=== PATIENT | female | born 1965 | race American Indian/Alaskan Native ===

== ENCOUNTER 2020-05-01 22:02 | Inpatient (IN) | payer OTHER ==
[2020-05-01] MEDS ORDERED: SODIUM CHLORIDE 0.9% 1000 ML 1,000 ML IV ONE (22:07)
[2020-05-01] MEDS ORDERED: methylPREDNISolone Sod Succinate 125 MG/2 ML INJ IV ONE (22:07)
[2020-05-01] MEDS ORDERED: cefTRIAXone/NS 2 GM/100 ML 2 GM/100 ML BAG IV ONE (22:09)
[2020-05-01] MEDS ORDERED: AZITHROMYCIN 500 MG in SODIUM CHLORIDE 0.9% 250ML 250 ML IV ONE (22:09)
--- NOTE | 2020-05-01 22:10 | Emergency Department Report ---
ED Shortness of Breath HPI - General Chief Complaint: Dyspnea/Respdistress Stated Complaint: SOB Time Seen by Provider: 05/01/20 22:05 Source: patient Mode of arrival: Stretcher Limitations: No Limitations - History of Present Illness Initial Comments: Patient is a 54-year-old female that presents emergency room with complaints of chest pain and shortness of breath. Patient shortness of breath and chest pain started this morning. Patient states her symptoms are worsening. Patient states having difficulties breathing and cough and fever. Patient states she was diagnosed with COVID 7 days ago. Patient states that she was given antibiotics by her primary care. Patient was brought in by EMS. EMS states they found the patient to be 76% on room air. Patient was placed on nonrebreather and her oxygen saturation improved. Patient has been self quarantining since her diagnosis. Patient denies dizziness. Patient denies nausea and vomiting. Patient denies diarrhea. MD Complaint: shortness of breath, cough, chest pain -: Sudden Severity: severe Pain Scale: 10 Quality: throbbing Consistency: constant Improves With: rest Worsens With: exertion, movement Context: recent URI Associated Symptoms: chest pain, pain with inspiration, fever, cough Treatments Prior to Arrival: oxygen - Related Data Home Oxygen Therapy: No Home Medications Medication Instructions Recorded Confirmed Last Taken Levothyroxine 25 mg PO QDAY 05/01/20 05/01/20 Unknown Allergies Allergy/AdvReac Type Severity Reaction Status Date / Time No Known Allergies Allergy Unverified 05/01/20 22:11 ED Review of Systems ROS: Stated complaint: SOB Other details as noted in HPI Constitutional: chills, fever Eyes: denies: eye pain, eye discharge, vision change ENT: denies: ear pain, throat pain Respiratory: cough, shortness of breath. denies: wheezing Cardiovascular: denies: chest pain, palpitations Endocrine: no symptoms reported Gastrointestinal: denies: abdominal pain, nausea, diarrhea Genitourinary: denies: urgency, dysuria, discharge Musculoskeletal: denies: back pain, joint swelling, arthralgia Skin: denies: rash, lesions Neurological: denies: headache, weakness, paresthesias Psychiatric: denies: anxiety, depression Hematological/Lymphatic: denies: easy bleeding, easy bruising ED Past Medical Hx - Past Medical History Previous Medical History?: No Hx Hypertension: No Hx Diabetes: No - Surgical History Past Surgical History?: No - Family History Family history: no significant - Social History Smoking Status: Never Smoker Substance Use Type: None - Medications Home Medications: Home Medications Medication Instructions Recorded Confirmed Last Taken Type Levothyroxine 25 mg PO QDAY 05/01/20 05/01/20 Unknown History ED Physical Exam - General Limitations: No Limitations General appearance: alert, in no apparent distress - Head Head exam: Present: atraumatic, normocephalic - Eye Eye exam: Present: normal appearance - ENT ENT exam: Present: mucous membranes moist - Neck Neck exam: Present: normal inspection - Respiratory Respiratory exam: Present: decreased breath sounds. Absent: respiratory distress, wheezes, rales - Cardiovascular Cardiovascular Exam: Present: regular rate, normal rhythm. Absent: systolic murmur, diastolic murmur, rubs, gallop - GI/Abdominal GI/Abdominal exam: Present: soft, normal bowel sounds - Extremities Exam Extremities exam: Present: normal inspection - Back Exam Back exam: Present: normal inspection - Neurological Exam Neurological exam: Present: alert, oriented X3 - Psychiatric Psychiatric exam: Present: normal affect, normal mood - Skin Skin exam: Present: warm, dry, intact, normal color. Absent: rash ED Course Vital Signs 05/01/20 05/01/20 05/01/20 22:11 22:26 22:30 Temperature 101.1 F H Pulse Rate 107 H 110 H 104 H Respiratory 20 20 Rate Blood Pressure 141/81 Blood Pressure 141/81 [LEFT FOREARM] O2 Sat by Pulse 98 91 98 Oximetry 05/01/20 05/01/20 05/01/20 23:00 23:05 23:22 Temperature Pulse Rate 97 H 106 H Respiratory 29 H 23 Rate Blood Pressure 141/81 Blood Pressure [LEFT FOREARM] O2 Sat by Pulse 99 95 100 Oximetry 05/01/20 05/02/20 05/02/20 23:30 00:00 00:30 Temperature Pulse Rate 97 H 92 H 93 H Respiratory 24 23 21 Rate Blood Pressure 141/81 133/85 Blood Pressure [LEFT FOREARM] O2 Sat by Pulse 99 100 98 Oximetry - Reevaluation(s) Reevaluation #1: Initial evaluation done. Patient placed on nonrebreather. 05/01/20 22:05 Reevaluation #2: Patient continues to require O2. Patient patient was placed on high flow O2. 05/01/20 22:42 Reevaluation #3: I discussed all results with patient. I discussed plan of care with patient. Emma zhou agrees with plan of care and admission. Patient to be admitted to the hospitalist service. 05/01/20 23:59 - Consultations Consultation #1: Hospitalist consulted for admission. Hospitalist to admit patient. 05/01/20 23:59 Consultation #2: ID consult placed in system 05/01/20 23:52 Consultation #3: I discussed the patient's case with [place] physician, Dr. Salinas. Dr. Salinas agrees with admission here. 05/02/20 01:33 ED Medical Decision Making - Lab Data Result diagrams: 05/01/20 22:50 05/01/20 22:50 - Radiology Data Radiology results: report reviewed CHEST 1 VIEW 05/01/2020 10:36 PM INDICATION / CLINICAL INFORMATION: Dyspnea. Chest pain. COVID 19 positive. COMPARISON: None available. FINDINGS: SUPPORT DEVICES: None. HEART / MEDIASTINUM: No significant abnormality. LUNGS / PLEURA: There are generalized bilateral airspace opacities. No significant pleural effusion. No pneumothorax. ADDITIONAL FINDINGS: No significant additional findings. IMPRESSION: Bilateral pneumonia. Continued radiographic follow-up to resolution is recommended. - Medical Decision Making Patient is a 54-year-old female who presents emergency room with complaints of shortness of breath difficulties breathing and chest pain. Patient symptoms started today. Patient was diagnosed with COVID 7 days ago. Patient states her difficulties breathing and chest pain started this morning. Patient placed on antibiotics by her primary care for COVID. Patient brought in by EMS. Patient found to have a 76 oxygen saturation. Patient placed on oxygen. Patient was then converted from a nonrebreather to high flow O2 and her oxygen improved. Patient admitted into the ICU and to the hospitalist service. Patient is given fluids, Rocephin, azithromycin and Solu-Medrol. Patient's chest x-ray also shows bilateral pneumonia - Differential Diagnosis Fever, COVID, pneumonia, hypoxia, shortness of breath, Critical Care Time: Yes Critical care time in (mins) excluding proc time.: 35 Critical care attestation.: If time is entered above; I have spent that time in minutes in the direct care of this critically ill patient, excluding procedure time. Critical Care Time: 35 MINUTES ED Disposition Clinical Impression: Cough, SOB (shortness of breath), Suspected COVID-19 virus infection, COVID-19 Respiratory failure Qualifiers: Chronicity: acute Respiratory failure complication: hypoxia Qualified Code(s): J96.01 - Acute respiratory failure with hypoxia Pneumonia Qualifiers: Pneumonia type: due to unspecified organism Laterality: bilateral Lung location: unspecified part of lung Qualified Code(s): J18.9 - Pneumonia, unspecified organism Chest pain Qualifiers: Chest pain type: unspecified Qualified Code(s): R07.9 - Chest pain, unspecified Fever Qualifiers: Fever type: unspecified Qualified Code(s): R50.9 - Fever, unspecified Disposition: 09 OP ADMIT IP TO THIS HOSP Is pt being admited?: Yes Does the pt Need Aspirin: No Condition: Critical Time of Disposition: 23:54
--- NOTE | 2020-05-01 22:53 | XRay Report ---
CHEST 1 VIEW 05/01/2020 10:36 PM INDICATION / CLINICAL INFORMATION: Dyspnea. Chest pain. COVID 19 positive. COMPARISON: None available. FINDINGS: SUPPORT DEVICES: None. HEART / MEDIASTINUM: No significant abnormality. LUNGS / PLEURA: There are generalized bilateral airspace opacities. No significant pleural effusion. No pneumothorax. ADDITIONAL FINDINGS: No significant additional findings. IMPRESSION: Bilateral pneumonia. Continued radiographic follow-up to resolution is recommended. Signer Name: Anthony Barahona MD Signed: 05/01/2020 10:49 PM Workstation Name: [id number]
[2020-05-01 23:14] LABS: Basophils % (Auto) 0.3 % (0.0-1.8); Hematocrit 45.6 % (30.3-42.9); Hemoglobin 14.6 gm/dl (10.1-14.3); Lymphocytes # (Auto) 0.9 K/mm3 (1.2-5.4); Lymphocytes % (Auto) 10.6 % (13.4-35.0); Mean Corpuscular HGB Conc 32 % (30-34); Mean Corpuscular Volume 80 fl (79-97); Monocytes # (Auto) 0.8 K/mm3 (0.0-0.8); Platelet Count 222 K/mm3 (140-440); Red Blood Count 5.68 M/mm3 (3.65-5.03); Red Cell Distribution Width 14.9 % (13.2-15.2)
[2020-05-01 23:46] LABS: Alanine Aminotransferase 93 units/L (7-56); Albumin 3.4 g/dL (3.9-5); BUN/Creatinine Ratio 13; Blood Urea Nitrogen 10 mg/dL (7-17); Calcium 8.6 mg/dL (8.4-10.2); Creatine Kinase MB < 1.0 ng/mL (0.0-4.0); Hemolysis Index 1
[2020-05-02] MEDS ORDERED: ACETAMINOPHEN 325 MG TAB PO PRN (00:21)
[2020-05-02] MEDS ORDERED: MORPHINE 2 MG/1 ML INJ IV PRN (00:21)
[2020-05-02] MEDS ORDERED: MAGNESIUM HYDROXIDE (MOM) ORAL LIQD UDC PO PRN ×2 (00:21)
--- NOTE | 2020-05-02 00:31 | History and Physical Report ---
History of Present Illness Date of examination: 05/02/20 Date of admission: 05/02/20 00:02 Chief complaint: Shortness of breath History of present illness: 84-year-old female with no significant past medical history presenting to the emergency room today complaining of shortness of breath. She also had associated chest discomfort. She was diagnosed with COVID-19 about a week ago but she started having difficulty breathing, having cough and fever today. He had some antibiotics, primary care physician-name unknown. He denies any nausea vomiting, no diarrhea, no abdominal pain, no hematuria or dysuria, no headache or dizziness. Denies any generalized body aches and pain. Patient was brought in by EMS and was found to be about 76% saturation on room air was subsequently placed on high flow oxygen. Chest x-ray reveals bilateral pneumonia. He has been placed on empiric IV antibiotics and IV steroid patient placed on isolation precautions for COVID-19. Past History Past Medical History: hypothyroidism Past Surgical History: No surgical history Social history: no significant social history Family history: no significant family history Medications and Allergies Allergies Allergy/AdvReac Type Severity Reaction Status Date / Time No Known Allergies Allergy Unverified 05/01/20 22:11 Home Medications Medication Instructions Recorded Confirmed Last Taken Type Levothyroxine 25 mg PO QDAY 05/01/20 05/01/20 Unknown History Review of Systems Constitutional: fever, no chills Ears, nose, mouth and throat: no nasal congestion, no sore throat Cardiovascular: chest pain, no palpitations Respiratory: cough, shortness of breath Gastrointestinal: no abdominal pain, no nausea, no vomiting, no diarrhea Genitourinary Female: no flank pain, no dysuria, no hematuria Musculoskeletal: no neck pain, no low back pain Integumentary: no rash, no pruritis Neurological: no headaches, no confusion Psychiatric: no anxiety, no depression Exam - Constitutional Vitals: Temp Pulse Resp BP Pulse Ox 101.1 F H 106 H 23 141/81 100 05/01/20 22:11 05/01/20 23:22 05/01/20 23:22 05/01/20 22:11 05/01/20 23:22 General appearance: Present: no acute distress, well-nourished - EENT Eyes: Present: PERRL, EOM intact ENT: hearing intact, clear oral mucosa, dentition normal - Neck Neck: Present: supple, normal ROM - Respiratory Respiratory effort: normal Respiratory: bilateral: diminished - Cardiovascular Rhythm: regular Heart Sounds: Present: S1 & S2. Absent: gallop, systolic murmur, diastolic murmur, rub - Extremities Extremities: no ischemia, pulses intact, pulses symmetrical, No edema, Full ROM Peripheral Pulses: within normal limits - Abdominal General gastrointestinal: Present: soft, non-tender, non-distended, normal bowel sounds. Absent: mass - Integumentary Integumentary: Present: clear, warm, dry. Absent: rash - Musculoskeletal Musculoskeletal: strength equal bilaterally - Psychiatric Psychiatric: appropriate mood/affect, intact judgment & insight, memory intact, cooperative - Neurologic Neurologic: CNII-XII intact, no focal deficits, moves all extremities HEART Score - HEART Score Troponin: Troponin T < 0.010 ng/mL (0.00-0.029) 05/01/20 22:50 Results - Labs CBC & Chem 7: 05/01/20 22:50 05/01/20 22:50 Labs: Abnormal lab results 05/01/20 05/01/20 05/01/20 Range/Units 22:50 22:50 22:50 RBC 5.68 H (3.65-5.03) M/mm3 Hgb 14.6 H (10.1-14.3) gm/dl Hct 45.6 H (30.3-42.9) % MCH 26 L (28-32) pg Lymph % (Auto) 10.6 L (13.4-35.0) % [place] % (Auto) 10.0 H (0.0-7.3) % Lymph # 0.9 L (1.2-5.4) K/mm3 Seg Neutrophils % 79.1 H (40.0-70.0) % D-Dimer 835.72 H (0-234) ng/mlDDU Glucose 102 H (65-100) mg/dL AST 54 H (5-40) units/L ALT 93 H (7-56) units/L Total Protein 8.7 H (6.3-8.2) g/dL Albumin 3.4 L (3.9-5) g/dL Assessment and Plan - Patient Problems (1) Pneumonia Current Visit: Yes Status: Acute Qualifiers: Pneumonia type: due to unspecified organism Laterality: bilateral Lung location: unspecified part of lung Qualified Code(s): J18.9 - Pneumonia, unspecified organism Plan to address problem: Patient placed on IV antibiotics. We will await blood culture result. (2) Respiratory failure Current Visit: Yes Status: Acute Qualifiers: Chronicity: acute Respiratory failure complication: hypoxia Qualified Code(s): J96.01 - Acute respiratory failure with hypoxia Plan to address problem: Secondary to the underlying pneumonia. Patient currently on high flow oxygen. We will keep O2 saturation greater or equal to 94%. We will place consult to utility bill collection clerk for evaluation and recommendation. (3) Suspected COVID-19 virus infection Current Visit: Yes Status: Acute Plan to address problem: Patient placed on isolation precautions. Consult has been placed to infectious disease for evaluation and recommendation. Meanwhile patient placed on IV steroid. (4) DVT prophylaxis Current Visit: Yes Status: Acute Plan to address problem: Patient placed on subcutaneous Lovenox. (5) Full code status Current Visit: Yes Status: Acute
[2020-05-02] MEDS ORDERED: ONDANSETRON 4 MG/2 ML INJ ONE ×2 (00:46→14:31)
[2020-05-02] MEDS ORDERED: ACETAMINOPHEN 325 MG TAB ONE ×2 (00:46→14:30)
[2020-05-02] MEDS ORDERED: MORPHINE 2 MG/1 ML INJ ONE ×2 (00:47→14:31)
[2020-05-02] MEDS: MORPHINE 2 MG/1 ML INJ IV PRN ×2 (00:48→14:21)
[2020-05-02] MEDS: ACETAMINOPHEN 325 MG TAB PO PRN ×2 (00:48→14:22)
[2020-05-02] MEDS: ONDANSETRON 4 MG/2 ML INJ IV PRN ×2 (00:48→14:22)
[2020-05-02 01:11] LABS: ABG Base Excess -1.6 mmol/L (-2.0-3.0); ABG HCO3 22.5 mmol/L (20.0-26.0); ABG Methemoglobin 0.5 % (0.0-1.5); ABG Oxygen Saturation 98.1 % (95.0-99.0); ABG PCO2 36.3 mm Hg; ABG PH 7.411 pH Units (7.350-7.450); ABG PO2 117.3 mm Hg (80.0-90.0)
[2020-05-02 02:08] LABS: C-Reactive Protein 6.7 mg/dL (0.00-1.30)
[2020-05-02] MEDS ORDERED: cefTRIAXone/NS 2 GM/100 ML 2 GM/100 ML BAG IV SCH (10:00)
[2020-05-02] MEDS ORDERED: AZITHROMYCIN 500 MG in SODIUM CHLORIDE 0.9% 250ML 250 ML IV SCH (10:00)
[2020-05-02] MEDS: dexAMETHasone 4 MG/ML VIAL IV SCH (11:00)
[2020-05-02] MEDS ORDERED: cefTRIAXone/NS 2 GM/100 ML 2 GM/100 ML BAG IV ONE (11:31)
[2020-05-02] MEDS ORDERED: dexAMETHasone 20 MG/5 ML VIAL ONE (11:31)
--- NOTE | 2020-05-02 13:27 | Consultation ---
History of Present Illness Consult date: 05/02/20 Reason for consult: dyspnea, cough, other (Fever) History of present illness: 84-year-old female with no significant past medical history presenting to the emergency room today complaining of shortness of breath. She also had associated chest discomfort. She was diagnosed with COVID-19 about a week ago but she started having difficulty breathing, having cough and fever today. He had some antibiotics, primary care physician-name unknown. He denies any nausea vomiting, no diarrhea, no abdominal pain, no hematuria or dysuria, no headache or dizziness. Denies any generalized body aches and pain. Patient has no history of smoking, alcohol or drug abuse. Denies history of asthma. History of hypothyroidism No known de rug allergies. Patient was brought in by EMS and was found to be about 76% saturation on room air was subsequently placed on high flow oxygen. Patient presently on Vapotherm, FIO2 70% and O2 saturation running 94%. Patient febrile 101.1 No leukocytosis. Chest x-ray reveals bilateral pneumonia. He has been placed on empiric IV antibiotics and IV steroid patient placed on isolation precautions for COVID-19. Patient is on ceftrioxone, Zithromax and dexamethasone and S/C Lovenox. Past History Past Medical History: hypothyroidism Past Surgical History: No surgical history Social history: no significant social history. denies: smoking, alcohol abuse, prescription drug abuse Family history: no significant family history Medications and Allergies Allergies Allergy/AdvReac Type Severity Reaction Status Date / Time No Known Allergies Allergy Unverified 05/01/20 22:11 Home Medications Medication Instructions Recorded Confirmed Last Taken Type Levothyroxine 25 mg PO QDAY 05/01/20 05/01/20 Unknown History Active Meds: Active Medications Acetaminophen (Tylenol) 650 mg PO Q4H PRN PRN Reason: Pain MILD(1-3)/Fever >100.5/ROMERO Last Admin: 05/02/20 00:48 Dose: 650 mg Documented by: Dexamethasone (Decadron) 6 mg IV Q24HR SLAVA Enoxaparin Sodium (Enoxaparin) 40 mg SUB-Q QDAY@2200 SLAVA Ceftriaxone Sodium (Rocephin/Ns 2 Gm/100 Ml) 2 gm in 100 mls @ 200 mls/hr IV Q24HR SLAVA; Protocol Azithromycin 500 mg/ Sodium (Chloride) 250 mls @ 250 mls/hr IV Q24HR SLAVA; Protocol Magnesium Hydroxide (Milk Of Magnesia) 30 ml PO Q4H PRN PRN Reason: Constipation Morphine Sulfate (Morphine) 2 mg IV Q4H PRN PRN Reason: Pain, Moderate (4-6) Last Admin: 05/02/20 00:48 Dose: 2 mg Documented by: Ondansetron HCl (Zofran) 4 mg IV Q8H PRN PRN Reason: Nausea And Vomiting Last Admin: 05/02/20 00:48 Dose: 4 mg Documented by: Sodium Chloride (Sodium Chloride Flush Syringe 10 Ml) 10 ml IV BID SLAVA Sodium Chloride (Sodium Chloride Flush Syringe 10 Ml) 10 ml IV PRN PRN PRN Reason: LINE FLUSH Review of Systems All systems: negative Physical Examination Vital signs: Vital Signs Temp Pulse Resp BP Pulse Ox 101.1 F H 107 H 20 141/81 98 05/01/20 22:11 05/01/20 22:11 05/01/20 22:11 05/01/20 22:11 05/01/20 22:11 General appearance: no acute distress, alert, other ([place] Obese.) Eyes: non-icteric ENT: oropharynx moist Neck: supple, no JVD Effort: mildly labored Ascultation: Bilateral: diminished breath sounds, rhonchi Cardiovascular: regular rate and rhythm Gastrointestinal: normoactive bowel sounds, soft, non-tender Integumentary: normal Extremities: no cyanosis, no edema Musculoskeletal: no deformities Gait: other (Can not assess at this time.) normal mental status, non-focal exam, pupils equal and round, CN II-XII normal Results - Laboratory Findings CBC and BMP: 05/01/20 22:50 05/01/20 22:50 ABG ABG pH 7.411 pH Units (7.350-7.450) 05/02/20 00:54 ABG pCO2 36.3 mm Hg 05/02/20 00:54 ABG pO2 117.3 mm Hg (80.0-90.0) H 05/02/20 00:54 ABG O2 Saturation 98.1 % (95.0-99.0) 05/02/20 00:54 PT/INR, D-dimer D-Dimer 835.72 ng/mlDDU (0-234) H 05/01/20 22:50 Abnormal lab findings: Abnormal Labs 05/01/20 05/01/20 05/01/20 22:50 22:50 22:50 RBC 5.68 H Hgb 14.6 H Hct 45.6 H MCH 26 L Lymph % (Auto) 10.6 L [place] % (Auto) 10.0 H Lymph # 0.9 L Seg Neutrophils % 79.1 H D-Dimer 835.72 H ABG pO2 Glucose 102 H AST 54 H ALT 93 H Lactate Dehydrogenase C-Reactive Protein Total Protein 8.7 H Albumin 3.4 L 05/01/20 05/02/20 22:50 00:54 RBC Hgb Hct MCH Lymph % (Auto) [place] % (Auto) Lymph # Seg Neutrophils % D-Dimer ABG pO2 117.3 H Glucose 104 H AST ALT Lactate Dehydrogenase 398 H C-Reactive Protein 6.70 H Total Protein Albumin - Diagnostic Findings Chest x-ray: report reviewed, image reviewed Additional studies: CHEST 1 VIEW 05/01/2020 10:36 PM INDICATION / CLINICAL INFORMATION: Dyspnea. Chest pain. COVID 19 positive. COMPARISON: None available. FINDINGS: SUPPORT DEVICES: None. HEART / MEDIASTINUM: No significant abnormality. LUNGS / PLEURA: There are generalized bilateral airspace opacities. No significant pleural effusion. No pneumothorax. ADDITIONAL FINDINGS: No significant additional findings. IMPRESSION: Bilateral pneumonia. Continued radiographic follow-up to resolution is recommended. Assessment and Plan 4-year-old female with no significant past medical history presenting to the emergency room today complaining of shortness of breath. She also had associated chest discomfort. She was diagnosed with COVID-19 about a week ago but she started having difficulty breathing, having cough and fever today. He had some antibiotics, primary care physician-name unknown. He denies any nausea vomiting, no diarrhea, no abdominal pain, no hematuria or dysuria, no headache or dizziness. Denies any generalized body aches and pain. Patient has no history of smoking, alcohol or drug abuse. Denies history of asthma. No known de rug allergies. Patient was brought in by EMS and was found to be about 76% saturation on room air was subsequently placed on high flow oxygen. Patient presently on Vapotherm, FIO2 70% and O2 saturation running 94%. Patient febrile 101.1 No leukocytosis. Chest x-ray reveals bilateral pneumonia. He has been placed on empiric IV antibiotics and IV steroid patient placed on isolation precautions for COVID-19. Patient is on ceftrioxone, Zithromax and dexamethasone and S/C Lovenox. I spent direct critical care time of 45 minutes on this patient obtaining history, review the chart, Examining the patient, review chest xray and lab results, talking to respiratory therapy, nursing staff and work out plan of treatment in this critically ill COVID positive patient. - Patient Problems (1) COVID-19 Current Visit: Yes Status: Acute Plan to address problem: Patient is on ceftrioxone, Zithromax and dexamethasone and S/C Lovenox. Recommend to consult infectious diseases. (2) Pneumonia Current Visit: Yes Status: Acute Qualifiers: Pneumonia type: due to unspecified organism Laterality: bilateral Lung location: unspecified part of lung Qualified Code(s): J18.9 - Pneumonia, unspecified organism Plan to address problem: Patient is on ceftrioxone, Zithromax (3) Respiratory failure Current Visit: Yes Status: Acute Qualifiers: Chronicity: acute Respiratory failure complication: hypoxia Qualified Code(s): J96.01 - Acute respiratory failure with hypoxia Plan to address problem: Patient is on Vapotherm, FIO2 70%. (4) Chest pain Current Visit: Yes Status: Acute Qualifiers: Chest pain type: unspecified Qualified Code(s): R07.9 - Chest pain, unspecified Plan to address problem: Recommend to get Angio CT of chest. Also recommend to consult cardiology. (5) Fever Current Visit: Yes Status: Acute Qualifiers: Fever type: unspecified Plan to address problem: Patient is on ceftrioxone, Zithromax Recommend to consult infectious diseases also.
[2020-05-02 14:18] LABS: Bacteria,Urine 1+ /HPF (Negative); Bilirubin,Urine NEG (Negative); Blood,Urine MOD (Negative); Color,Urine Yellow (Yellow); Mucus,Urine 2+ /HPF
--- NOTE | 2020-05-02 17:48 | Consultation ---
History of Present Illness - Reason for Consult Consult date: 05/02/20 - History of Present Illness 54-year-old female no known past medical history admitted to the hospital complaining of shortness of breath. She also reports a chest discomfort at the same time she was initially diagnosed COVID-19 approximately a week prior to admission, but her symptoms only began the day of admission to hospital. She also reports associated fever and cough. Found to be hypoxic in the emergency room Febrile to 101.1 with a normal white count of 8. Currently seeing ceftriaxone and azithromycin. Blood cultures currently pending. Procalcitonin is normal. Currently receiving high flow nasal cannula 25 L/min. Imaging personally reviewed: Chest x-ray: Bilateral pneumonia Review of Systems: Bold if positive, otherwise negative General: fevers, chills, rigors HEENT: visual disturbance, diplopia, eye pain Respiratory: cough, sputum, hemoptysis, shortness of breath Cardiovascular: chest pain, syncope Gastrointestinal: nausea, vomiting, diarrhea, abdominal pain Genitourinary: dysuria, hematuria, flank pain Musculoskeletal: neck pain, back pain, joint pain, edema Neurologic: headaches, seizures Hematologic: easy bruising or bleeding Endocrine: night sweats, acute weight loss Skin: rash, jaundice, redness Psychiatric: suicidal, homicidal ideation Past History Past Medical History: hypothyroidism Past Surgical History: No surgical history Social history: no significant social history. denies: smoking, alcohol abuse, prescription drug abuse Family history: no significant family history Medications and Allergies Allergies Allergy/AdvReac Type Severity Reaction Status Date / Time No Known Allergies Allergy Unverified 05/01/20 22:11 Home Medications Medication Instructions Recorded Confirmed Last Taken Type Levothyroxine 25 mg PO QDAY 05/01/20 05/01/20 Unknown History Active Meds: Active Medications Acetaminophen (Tylenol) 650 mg PO Q4H PRN PRN Reason: Pain MILD(1-3)/Fever >100.5/ROMERO Last Admin: 05/02/20 14:22 Dose: 650 mg Documented by: Dexamethasone (Decadron) 6 mg IV Q24HR SLAVA Last Admin: 05/02/20 11:00 Dose: 6 mg Documented by: Enoxaparin Sodium (Enoxaparin) 40 mg SUB-Q QDAY@2200 SLAVA Ceftriaxone Sodium (Rocephin/Ns 2 Gm/100 Ml) 2 gm in 100 mls @ 200 mls/hr IV Q24HR SLAVA; Protocol Last Admin: 05/02/20 11:00 Dose: 200 mls/hr Documented by: Azithromycin 500 mg/ Sodium (Chloride) 250 mls @ 250 mls/hr IV Q24HR SLAVA; Protocol Last Admin: 05/02/20 11:00 Dose: 250 mls/hr Documented by: Magnesium Hydroxide (Milk Of Magnesia) 30 ml PO Q4H PRN PRN Reason: Constipation Morphine Sulfate (Morphine) 2 mg IV Q4H PRN PRN Reason: Pain, Moderate (4-6) Last Admin: 05/02/20 14:21 Dose: 2 mg Documented by: Ondansetron HCl (Zofran) 4 mg IV Q8H PRN PRN Reason: Nausea And Vomiting Last Admin: 05/02/20 14:22 Dose: 4 mg Documented by: Sodium Chloride (Sodium Chloride Flush Syringe 10 Ml) 10 ml IV BID SLAVA Last Admin: 05/02/20 10:00 Dose: 10 ml Documented by: Sodium Chloride (Sodium Chloride Flush Syringe 10 Ml) 10 ml IV PRN PRN PRN Reason: LINE FLUSH Physical Examination - Physical Exam Narrative exam: Physical exam deferred due to PPE conservation strategy. Please refer to primary team's note. - Constitutional Vitals: Vital Signs Temp Pulse Resp BP Pulse Ox 101.1 F H 78 24 128/72 93 05/01/20 22:11 05/02/20 14:35 05/02/20 14:35 05/02/20 14:35 05/02/20 14:35 Temperature -Last 24 Hours Temperature 101.1 F Results - Labs CBC & Chem 7: 05/01/20 22:50 05/01/20 22:50 Labs: Abnormal lab results 05/01/20 05/01/20 05/01/20 Range/Units 22:50 22:50 22:50 RBC 5.68 H (3.65-5.03) M/mm3 Hgb 14.6 H (10.1-14.3) gm/dl Hct 45.6 H (30.3-42.9) % MCH 26 L (28-32) pg Lymph % (Auto) 10.6 L (13.4-35.0) % [place] % (Auto) 10.0 H (0.0-7.3) % Lymph # 0.9 L (1.2-5.4) K/mm3 Seg Neutrophils % 79.1 H (40.0-70.0) % D-Dimer 835.72 H (0-234) ng/mlDDU ABG pO2 (80.0-90.0) mm Hg Glucose 102 H (65-100) mg/dL AST 54 H (5-40) units/L ALT 93 H (7-56) units/L Lactate Dehydrogenase (91-180) units/L C-Reactive Protein (0.00-1.30) mg/dL Total Protein 8.7 H (6.3-8.2) g/dL Albumin 3.4 L (3.9-5) g/dL Urine WBC (Auto) (0.0-6.0) /HPF 05/01/20 05/02/20 05/02/20 Range/Units 22:50 00:54 13:55 RBC (3.65-5.03) M/mm3 Hgb (10.1-14.3) gm/dl Hct (30.3-42.9) % MCH (28-32) pg Lymph % (Auto) (13.4-35.0) % [place] % (Auto) (0.0-7.3) % Lymph # (1.2-5.4) K/mm3 Seg Neutrophils % (40.0-70.0) % D-Dimer (0-234) ng/mlDDU ABG pO2 117.3 H (80.0-90.0) mm Hg Glucose 104 H (65-100) mg/dL AST (5-40) units/L ALT (7-56) units/L Lactate Dehydrogenase 398 H (91-180) units/L C-Reactive Protein 6.70 H (0.00-1.30) mg/dL Total Protein (6.3-8.2) g/dL Albumin (3.9-5) g/dL Urine WBC (Auto) 8.0 H (0.0-6.0) /HPF Assessment and Plan Cultures: Blood culture 05/02/2020 pending A/P: 54-year-old female no known past medical history admitted with COVID-19 pneumonia. #Acute hypoxemic respiratory failure: Likely secondary to COVID-19 infection. Currently on high flow nasal cannula 25/70% #Severe COVID-19 pneumonia: Patient presented with a week of symptoms, chest x- ray with diffuse bilateral infiltrates, currently on high flow nasal cannula. Inflammatory markers normal. Recs: -Stop empiric antibiotics -Start Dexamethasone 6 mg IV/PO daily for 10 days -Obtain daily inflammatory markers - ferritin, Ddimer, CRP, LDH -Inflammatory markers are normal, will hold on Actemra for now. -Consider prophylactic anticoagulation Thank you for the consult, we will continue to follow. Richy Lagos MD [facility] ([facility]) M: [phone] O: [phone] F: [phone]
[2020-05-02] MEDS ORDERED: ENOXAPARIN 40 MG/0.4 ML INJ SUB-Q ONE (22:08)
[2020-05-02] MEDS: ENOXAPARIN 40 MG/0.4 ML INJ SUB-Q SCH (22:10)
[2020-05-03 05:34] LABS: Basophils % (Auto) 0.2 % (0.0-1.8); Hematocrit 42.5 % (30.3-42.9); Hemoglobin 13.7 gm/dl (10.1-14.3); Lymphocytes # (Auto) 1.1 K/mm3 (1.2-5.4); Lymphocytes % (Auto) 8.3 % (13.4-35.0); Mean Corpuscular HGB Conc 32 % (30-34); Mean Corpuscular Volume 80 fl (79-97); Monocytes # (Auto) 1.1 K/mm3 (0.0-0.8); Monocytes % (Auto) 8.1 % (0.0-7.3); Platelet Count 163 K/mm3 (140-440); Red Blood Count 5.32 M/mm3 (3.65-5.03); Red Cell Distribution Width 14.7 % (13.2-15.2)
[2020-05-03 05:45] LABS: INR 1.08 (0.87-1.13)
[2020-05-03 05:49] LABS: BUN/Creatinine Ratio 21; Blood Urea Nitrogen 15 mg/dL (7-17); Calcium 8.5 mg/dL (8.4-10.2); Hemolysis Index 4
[2020-05-03] MEDS ORDERED: dexAMETHasone 4 MG/ML VIAL ONE (08:36)
[2020-05-03] MEDS: dexAMETHasone 4 MG/ML VIAL IV SCH (10:08)
--- NOTE | 2020-05-03 15:07 | Progress Note ---
Assessment and Plan Acute hypoxemic respiratory failure on HFOT COVID infection-diagnosed COVID-19 approximately a week prior to admission, Multifocal pneumonia Morbid obesity Hypothyroidism -ABG now, CXR in am -CBC, BMP in am - Continue to wean supplemental oxygen for target O2 sats > 92% - Start awake proning per facility protocol -Fluid conservative measures as tolerated by hemodynamics and renal function - Bronchodilators with pulmonary hygiene per RT-MDR - Accuchecks with glycemic control per SSI (While critically ill target blood glucose of 140-180 mg/dL; avoid hypoglycemia) - Avoid benzodiazepines, reduce the possibility of delirium - prn analgesia per CPOT score - Maintenance of sleep-wake cycle, avoid delirium -Avoid nephrotoxins, closely monitor renal function -Stress ulcer prophylaxis while on steroids, with acute hypoxic resp failure - Mobility protocol, off loading and skin assessment for pressure ulcer prevention - Monitor hemodynamics closely -Supportive transfusions as indicated to keep HgB >7g/dL -Chronic home medications as clinically indicated, resume Levothyroxine -Continue to monitor closely COVID SPECIFIC INTERVENTIONS -Airborne, contact isolation for COVID per facility protocols -Lateral decubitus and awake proning, encouraged at the bedside -IV steroids- dexamethasone -Trend d-dimer,and other inflammatory markers per facility protocol -VTE prophyalxis, get venous dopplers -Will recommend Remdesivir, defer ID per facility protocol -Continue all supportive care Discussed with the ICU team-RT,RN, Life threatening condition-Acute hypoxemic respiratory failure on HFOT Mortality/Morbidity- High Complexity of medical decision making- High CONDITION: CRITICAL PROGNOSIS: GUARDED CODE STATUS: FULL CODE The high probability of a clinically significant, sudden or life-threatening deterioration of the [respiratory ] system(s) required my full and direct attention, intervention and personal management. The aggregate critical care time was [33] minutes without overlap. Time includes spent on; [x] Data Review and interpretation [x] Patient assessment and monitoring of vital signs [x] Documentation [x] Medication orders and management Subjective Date of service: 05/03/20 Interval history: Follow up for : Acute hypoxemic respiratory failure,likely secondary to COVID- 19 infection; Severe COVID-19 pneumonia; Morbid obesity Seen and examined. Vitals, labs, medications, chart reviewed. Events overnight noted, worsening oxygenation with increasing FIO2 requirements. Currently on HFOT 35L FIO2 80%. She denies any chest pain, ongoing shortness of breath with some cough. No fevers or chills, no diarrhea or vomiting Objective Vital Signs - 12hr 05/03/20 05/03/20 05/03/20 04:00 04:25 05:00 Temperature Pulse Rate 71 72 Respiratory 31 H 28 H Rate Blood Pressure 134/80 134/80 Blood Pressure [LEFT FOREARM] O2 Sat by Pulse 91 93 92 Oximetry 05/03/20 05/03/20 05/03/20 06:00 07:00 08:00 Temperature Pulse Rate 70 78 89 Respiratory 31 H 29 H 36 H Rate Blood Pressure 136/84 136/84 138/91 Blood Pressure [LEFT FOREARM] O2 Sat by Pulse 91 95 87 Oximetry 05/03/20 05/03/20 05/03/20 08:46 09:00 09:11 Temperature 98.8 F Pulse Rate 74 100 H Respiratory 26 H 23 Rate Blood Pressure 138/91 Blood Pressure 131/80 [LEFT FOREARM] O2 Sat by Pulse 95 85 93 Oximetry 05/03/20 05/03/20 05/03/20 10:00 11:00 12:00 Temperature Pulse Rate 97 H 105 H 111 H Respiratory 33 H 35 H 32 H Rate Blood Pressure 143/93 143/93 135/92 Blood Pressure [LEFT FOREARM] O2 Sat by Pulse 85 89 89 Oximetry 05/03/20 05/03/20 13:00 14:49 Temperature Pulse Rate 109 H Respiratory 29 H Rate Blood Pressure 135/92 Blood Pressure [LEFT FOREARM] O2 Sat by Pulse 93 93 Oximetry Constitutional: no acute distress, alert, other (Morbidly Obese.) Eyes: non-icteric ENT: oropharynx moist Neck: supple, no JVD Effort: mildly labored Ascultation: Bilateral: diminished breath sounds, rhonchi Cardiovascular: regular rate and rhythm Gastrointestinal: normoactive bowel sounds, soft, non-tender Integumentary: normal Extremities: no cyanosis, no edema Neurologic: normal mental status, non-focal exam, pupils equal and round, CN II- XII normal CBC and BMP: 05/03/20 04:45 05/03/20 04:45 ABG, PT/INR, D-dimer: ABG ABG pH 7.411 pH Units (7.350-7.450) 05/02/20 00:54 ABG pCO2 36.3 mm Hg 07/25/20 00:54 ABG pO2 117.3 mm Hg (80.0-90.0) H 05/02/20 00:54 ABG O2 Saturation 98.1 % (95.0-99.0) 05/02/20 00:54 PT/INR, D-dimer PT 14.2 Sec. (12.2-14.9) 05/03/20 04:45 INR 1.08 (0.87-1.13) 05/03/20 04:45 D-Dimer 835.72 ng/mlDDU (0-234) H 05/01/20 22:50 Abnormal lab findings: Abnormal Labs 05/01/20 05/01/20 05/01/20 22:50 22:50 22:50 WBC RBC 5.68 H Hgb 14.6 H Hct 45.6 H MCH 26 L Lymph % (Auto) 10.6 L [place] % (Auto) 10.0 H Lymph # 0.9 L [place] # Seg Neutrophils % 79.1 H Seg Neutrophils # D-Dimer 835.72 H ABG pO2 Glucose 102 H AST 54 H ALT 93 H Lactate Dehydrogenase C-Reactive Protein Total Protein 8.7 H Albumin 3.4 L Urine WBC (Auto) 05/01/20 05/02/20 05/02/20 22:50 00:54 13:55 WBC RBC Hgb Hct MCH Lymph % (Auto) [place] % (Auto) Lymph # [place] # Seg Neutrophils % Seg Neutrophils # D-Dimer ABG pO2 117.3 H Glucose 104 H AST ALT Lactate Dehydrogenase 398 H C-Reactive Protein 6.70 H Total Protein Albumin Urine WBC (Auto) 8.0 H 05/03/20 05/03/20 04:45 04:45 WBC 13.1 H RBC 5.32 H Hgb Hct MCH 26 L Lymph % (Auto) 8.3 L [place] % (Auto) 8.1 H Lymph # 1.1 L [place] # 1.1 H Seg Neutrophils % 83.4 H Seg Neutrophils # 10.9 H D-Dimer ABG pO2 Glucose 110 H AST ALT Lactate Dehydrogenase C-Reactive Protein Total Protein Albumin Urine WBC (Auto) Chest x-ray: image reviewed (Bilateral alveolar infiltrates, more consfluent at the bases)
--- NOTE | 2020-05-03 16:39 | Progress Note ---
Assessment and Plan The high probability OF a clinically significant sudden or life-threatening deterioration of the cardiorespiratory system and endocrine system required my full and direct attention, intervention and postoperative management. The aggregate critical care time was 40 minutes. The time is in addition to time spent performing reported procedures but includes the followin: Data review and interpretation 2: Patient assessment and monitoring of vital signs 3: Documentation 4:: Medication orders and management (1) Pneumonia Current Visit: Yes Status: Acute Qualifiers: Pneumonia type: due to unspecified organism Laterality: bilateral Lung location: unspecified part of lung Qualified Code(s): J18.9 - Pneumonia, unspecified organism Plan to address problem: IV antibiotics (2) Respiratory failure Current Visit: Yes Status: Acute Qualifiers: Chronicity: acute Respiratory failure complication: hypoxia Qualified Code(s): J96.01 - Acute respiratory failure with hypoxia Plan to address problem: Patient on high flow oxygen Positive for coronavirus (3) Suspected COVID-19 virus infection Current Visit: Yes Status: Acute Plan to address problem: On high flow oxygenIV Decadron positive for coronavirus (4) DVT prophylaxis Current Visit: Yes Status: Acute Plan to address problem: Patient placed on subcutaneous Lovenox. (5) Full code status Current Visit: Yes Status: Acute Subjective Date of service: 05/03/20 Principal diagnosis: Bilateral pneumonia Interval history: 54-year-old female no known past medical history admitted to the hospital complaining of shortness of breath. She also reports a chest discomfort at the same time she was initially diagnosed COVID-19 approximately a week prior to admission, but her symptoms only began the day of admission to hospital. She also reports associated fever and cough. Found to be hypoxic in the emergency room Febrile to 101.1 with a normal white count of 8. Currently seeing ceftriaxone and azithromycin. Blood cultures currently pending. Procalcitonin is normal. Currently receiving high flow nasal cannula 25 L/min. Objective - Constitutional Vitals: Vital Signs - 12hr 05/03/20 05/03/20 05/03/20 05:00 06:00 07:00 Temperature Pulse Rate 72 70 78 Respiratory 28 H 31 H 29 H Rate Blood Pressure 134/80 136/84 136/84 Blood Pressure [LEFT FOREARM] O2 Sat by Pulse 92 91 95 Oximetry 05/03/20 05/03/20 05/03/20 08:00 08:46 09:00 Temperature 98.8 F Pulse Rate 89 74 100 H Respiratory 36 H 26 H 23 Rate Blood Pressure 138/91 138/91 Blood Pressure 131/80 [LEFT FOREARM] O2 Sat by Pulse 87 95 85 Oximetry 05/03/20 05/03/20 05/03/20 09:11 10:00 11:00 Temperature Pulse Rate 97 H 105 H Respiratory 33 H 35 H Rate Blood Pressure 143/93 143/93 Blood Pressure [LEFT FOREARM] O2 Sat by Pulse 93 85 89 Oximetry 05/03/20 05/03/20 05/03/20 12:00 13:00 14:49 Temperature Pulse Rate 111 H 109 H Respiratory 32 H 29 H Rate Blood Pressure 135/92 135/92 Blood Pressure [LEFT FOREARM] O2 Sat by Pulse 89 93 93 Oximetry 05/03/20 15:09 Temperature Pulse Rate Respiratory Rate Blood Pressure Blood Pressure [LEFT FOREARM] O2 Sat by Pulse 94 Oximetry General appearance: Present: no acute distress, well-nourished - EENT Eyes: PERRL, EOM intact ENT: hearing intact, clear oral mucosa Ears: bilateral: normal - Neck Neck: supple, normal ROM - Respiratory Respiratory effort: normal Respiratory: bilateral: CTA - Breasts Breasts: normal - Cardiovascular Rhythm: regular Heart Sounds: Present: S1 & S2. Absent: gallop, rub Extremities: pulses intact, No edema, normal color, Full ROM - Gastrointestinal General gastrointestinal: Present: soft, non-tender, non-distended, normal bowel sounds - Genitourinary Female genitourinary: normal - Integumentary Integumentary: clear, warm, dry - Musculoskeletal Musculoskeletal: 1, strength equal bilaterally - Neurologic Neurologic: moves all extremities - Psychiatric Psychiatric: memory intact, appropriate mood/affect, intact judgment & insight - Labs CBC & Chem 7: 05/05/20 00:35 05/03/20 04:45 Labs: Abnormal lab results 05/03/20 05/03/20 Range/Units 04:45 04:45 WBC 13.1 H (4.5-11.0) K/mm3 RBC 5.32 H (3.65-5.03) M/mm3 MCH 26 L (28-32) pg Lymph % (Auto) 8.3 L (13.4-35.0) % [place] % (Auto) 8.1 H (0.0-7.3) % Lymph # 1.1 L (1.2-5.4) K/mm3 [place] # 1.1 H (0.0-0.8) K/mm3 Seg Neutrophils % 83.4 H (40.0-70.0) % Seg Neutrophils # 10.9 H (1.8-7.7) K/mm3 Glucose 110 H (65-100) mg/dL HEART Score - HEART Score Troponin: Troponin T < 0.010 ng/mL (0.00-0.029) 05/01/20 22:50
[2020-05-03 16:51] LABS: ABG Base Excess -0.2 mmol/L (-2.0-3.0); ABG Methemoglobin 0.5 % (0.0-1.5); ABG PCO2 37.9 mm Hg; ABG PH 7.42 pH Units (7.350-7.450); ABG PO2 72.1 mm Hg (80.0-90.0)
[2020-05-03] MEDS: ACETAMINOPHEN 325 MG TAB PO PRN (17:44)
[2020-05-03] MEDS: ENOXAPARIN 40 MG/0.4 ML INJ SUB-Q SCH (21:46)
[2020-05-04] MEDS: LEVOTHYROXINE 25 MCG TAB PO SCH (05:08)
--- NOTE | 2020-05-04 09:29 | XRay Report ---
CHEST 1 VIEW INDICATION / CLINICAL INFORMATION: Multifocal PNEUMONIA, COVID positive. COMPARISON: 05/01/2020 FINDINGS: SUPPORT DEVICES: None. HEART / MEDIASTINUM: No significant abnormality. LUNGS / PLEURA: Slight worsening of bilateral multifocal patchy airspace disease. No pneumothorax. No pleural effusion. ADDITIONAL FINDINGS: No significant additional findings. IMPRESSION: Slight worsening of bilateral multifocal pneumonia. Signer Name: Gus Bonner MD Signed: 05/04/2020 9:24 AM Workstation Name: [id number]
[2020-05-04] MEDS: dexAMETHasone 4 MG/ML VIAL IV SCH (13:02)
--- NOTE | 2020-05-04 13:26 | Progress Note ---
Assessment and Plan Acute hypoxemic respiratory failure on HFOT COVID infection-diagnosed COVID-19 approximately a week prior to admission, Multifocal pneumonia Morbid obesity Hypothyroidism -ABG in am CXR in am -CBC, BMP in am - Continue to wean supplemental oxygen for target O2 sats > 92% - Start awake proning per facility protocol -Fluid conservative measures as tolerated by hemodynamics and renal function - Bronchodilators with pulmonary hygiene per RT-MDR - Accuchecks with glycemic control per SSI (While critically ill target blood glucose of 140-180 mg/dL; avoid hypoglycemia) - Avoid benzodiazepines, reduce the possibility of delirium - prn analgesia per CPOT score - Maintenance of sleep-wake cycle, avoid delirium -Avoid nephrotoxins, closely monitor renal function -Stress ulcer prophylaxis while on steroids, with acute hypoxic resp failure - Mobility protocol, off loading and skin assessment for pressure ulcer prevention - Monitor hemodynamics closely -Supportive transfusions as indicated to keep HgB >7g/dL -Chronic home medications as clinically indicated, resume Levothyroxine -Continue to monitor closely COVID SPECIFIC INTERVENTIONS -Airborne, contact isolation for COVID per facility protocols -Lateral decubitus and awake proning, encouraged at the bedside -IV steroids- dexamethasone -Trend d-dimer,and other inflammatory markers per facility protocol -VTE prophyalxis, get venous dopplers -Will recommend Remdesivir, defer ID per facility protocol -Continue all supportive care Discussed with the ICU team-RT,RN, Life threatening condition-Acute hypoxemic respiratory failure on HFOT Mortality/Morbidity- High Complexity of medical decision making- High CONDITION: CRITICAL PROGNOSIS: GUARDED CODE STATUS: FULL CODE The high probability of a clinically significant, sudden or life-threatening deterioration of the [respiratory ] system(s) required my full and direct attention, intervention and personal management. The aggregate critical care time was [31] minutes without overlap. Time includes spent on; [x] Data Review and interpretation [x] Patient assessment and monitoring of vital signs [x] Documentation [x] Medication orders and management Subjective Date of service: 05/04/20 Interval history: Follow up for : Acute hypoxemic respiratory failure,likely secondary to COVID- 19 infection; Severe COVID-19 pneumonia; Morbid obesity Seen and examined. Vitals, labs, medications, chart reviewed. Events overnight noted, worsening oxygenation with increasing FIO2 requirements. Currently on HFOT 30L FIO2 70%. She denies any chest pain, ongoing shortness of breath with some cough. No fevers or chills, no diarrhea or vomiting Objective Vital Signs - 12hr 05/04/20 05/04/20 05/04/20 02:00 03:00 03:29 Temperature 97.5 F L Pulse Rate 83 84 Pulse Rate [ From Monitor] Respiratory 27 H 25 H Rate Blood Pressure 157/95 152/96 O2 Sat by Pulse 97 94 Oximetry 05/04/20 05/04/20 05/04/20 04:00 05:00 06:00 Temperature Pulse Rate 81 85 78 Pulse Rate [ 86 From Monitor] Respiratory 26 H 27 H 20 Rate Blood Pressure 143/92 138/85 127/69 O2 Sat by Pulse 96 98 97 Oximetry 05/04/20 05/04/20 05/04/20 07:00 08:00 09:00 Temperature 98.4 F Pulse Rate 92 H 94 H 96 H Pulse Rate [ 90 From Monitor] Respiratory 19 22 22 Rate Blood Pressure 152/82 143/93 138/87 O2 Sat by Pulse 97 97 94 Oximetry 05/04/20 05/04/20 05/04/20 10:00 10:44 11:00 Temperature Pulse Rate 92 H 88 Pulse Rate [ From Monitor] Respiratory 38 H 31 H Rate Blood Pressure 132/78 134/80 O2 Sat by Pulse 96 96 94 Oximetry 05/04/20 05/04/20 12:00 13:00 Temperature 99.0 F Pulse Rate 92 H 96 H Pulse Rate [ 96 H From Monitor] Respiratory 28 H 33 H Rate Blood Pressure 150/92 154/97 O2 Sat by Pulse 96 96 Oximetry Constitutional: no acute distress, alert, other (Morbidly Obese.) Eyes: non-icteric ENT: oropharynx moist Neck: supple, no JVD Effort: mildly labored Ascultation: Bilateral: diminished breath sounds, rhonchi Cardiovascular: regular rate and rhythm Gastrointestinal: normoactive bowel sounds, soft, non-tender Integumentary: normal Extremities: no cyanosis, no edema Neurologic: normal mental status, non-focal exam, pupils equal and round, CN II- XII normal CBC and BMP: 05/05/20 00:35 05/03/20 04:45 ABG, PT/INR, D-dimer: ABG ABG pH 7.420 pH Units (7.350-7.450) 05/03/20 16:35 ABG pCO2 37.9 mm Hg 05/03/20 16:35 ABG pO2 72.1 mm Hg (80.0-90.0) L 05/03/20 16:35 ABG O2 Saturation 95.0 % (95.0-99.0) 05/03/20 16:35 PT/INR, D-dimer PT 14.2 Sec. (12.2-14.9) 05/03/20 04:45 INR 1.08 (0.87-1.13) 05/03/20 04:45 D-Dimer 835.72 ng/mlDDU (0-234) H 05/01/20 22:50 Abnormal lab findings: Abnormal Labs 05/01/20 05/01/20 05/01/20 22:50 22:50 22:50 WBC RBC 5.68 H Hgb 14.6 H Hct 45.6 H MCH 26 L Lymph % (Auto) 10.6 L [place] % (Auto) 10.0 H Lymph # 0.9 L [place] # Seg Neutrophils % 79.1 H Seg Neutrophils # D-Dimer 835.72 H ABG pO2 Oxyhemoglobin Glucose 102 H AST 54 H ALT 93 H Lactate Dehydrogenase C-Reactive Protein Total Protein 8.7 H Albumin 3.4 L Urine WBC (Auto) 05/01/20 05/02/20 05/02/20 22:50 00:54 13:55 WBC RBC Hgb Hct MCH Lymph % (Auto) [place] % (Auto) Lymph # [place] # Seg Neutrophils % Seg Neutrophils # D-Dimer ABG pO2 117.3 H Oxyhemoglobin Glucose 104 H AST ALT Lactate Dehydrogenase 398 H C-Reactive Protein 6.70 H Total Protein Albumin Urine WBC (Auto) 8.0 H 05/03/20 05/03/20 05/03/20 04:45 04:45 16:35 WBC 13.1 H RBC 5.32 H Hgb Hct MCH 26 L Lymph % (Auto) 8.3 L [place] % (Auto) 8.1 H Lymph # 1.1 L [place] # 1.1 H Seg Neutrophils % 83.4 H Seg Neutrophils # 10.9 H D-Dimer ABG pO2 72.1 L Oxyhemoglobin 93.8 L Glucose 110 H AST ALT Lactate Dehydrogenase C-Reactive Protein Total Protein Albumin Urine WBC (Auto)
--- NOTE | 2020-05-04 14:06 | Progress Note ---
Assessment and Plan Cultures: Blood culture 05/02/2020 pending A/P: 54-year-old female no known past medical history admitted with COVID-19 pneumonia. #Acute hypoxemic respiratory failure: Likely secondary to COVID-19 infection. Currently on high flow nasal cannula 25/70% #Severe COVID-19 pneumonia: Patient presented with a week of symptoms, chest x- ray with diffuse bilateral infiltrates, currently on high flow nasal cannula. Inflammatory markers normal. Recs: -Continue dexamethasone 6 mg IV/PO daily for 10 days -Obtain daily inflammatory markers - ferritin, Ddimer, CRP, LDH - ordered repeat for AM labs -Inflammatory markers are normal, will hold on Actemra for now. -Consider prophylactic anticoagulation -Consider enroling in covid convalescent plasma trial Thank you for the consult, we will continue to follow. Richy Lagos MD [facility] ([facility]) M: [phone] O: [phone] F: [phone] Subjective Date of service: 05/04/20 Interval history: Afebrile, white count mildly elevated at 13.1. Currently on high flow nasal cannula 30/70% Objective - Exam Narrative Exam: Physical exam deferred due to PPE conservation strategy. Please refer to primary team's note. - Constitutional Vitals: Vital Signs Temp Pulse Resp BP Pulse Ox 99.0 F 96 H 33 H 154/97 96 05/04/20 12:00 05/04/20 13:00 05/04/20 13:00 05/04/20 13:00 05/04/20 13:00 Temperature -Last 24 Hours Temperature 99.0 F Temperature 98.4 F Temperature 97.5 F Temperature 98.5 F Temperature 98.8 F Temperature 98.8 F - Labs CBC & Chem 7: 05/03/20 04:45 05/03/20 04:45 Labs: Abnormal lab results 05/03/20 Range/Units 16:35 ABG pO2 72.1 L (80.0-90.0) mm Hg Oxyhemoglobin 93.8 L (95.0-99.0) %
--- NOTE | 2020-05-04 16:07 | Vascular Lab Report ---
DUPLEX DOPPLER LOWER EXTREMITY VEINS, BILATERAL INDICATION: Shortness of breath.. TECHNIQUE: Duplex doppler imaging was performed through the veins of both lower extremities using venous angelito angelica and other maneuvers. COMPARISON: No relevant prior imaging study available. FINDINGS: Right Common femoral vein: Negative. Right Superficial femoral vein: Negative. Right Popliteal vein: Negative. Right Calf veins: Negative. Left Common femoral vein: Negative. Left Superficial femoral vein: Negative. Left Popliteal vein: Negative. Left Calf veins: Negative. Additional findings: None.. IMPRESSION: No sonographic evidence of DVT within the bilateral lower extremities. Signer Name: Gus Bonner MD Signed: 05/04/2020 4:03 PM Workstation Name: [id number]
--- NOTE | 2020-05-04 16:38 | Progress Note ---
Assessment and Plan The high probability OF a clinically significant sudden or life-threatening deterioration of the cardiorespiratory system and endocrine system required my full and direct attention, intervention and postoperative management. The aggregate critical care time was 35 minutes. The time is in addition to time spent performing reported procedures but includes the followin: Data review and interpretation 2: Patient assessment and monitoring of vital signs 3: Documentation 4:: Medication orders and management (1) Pneumonia Current Visit: Yes Status: Acute Qualifiers: Pneumonia type: due to unspecified organism Laterality: bilateral Lung location: unspecified part of lung Qualified Code(s): J18.9 - Pneumonia, unspecified organism Plan to address problem: IV antibiotics discontinued (2) Respiratory failure Current Visit: Yes Status: Acute Qualifiers: Chronicity: acute Respiratory failure complication: hypoxia Qualified Code(s): J96.01 - Acute respiratory failure with hypoxia Plan to address problem: Patient on high flow oxygen Positive for coronavirus Proning position (3) Suspected COVID-19 virus infection Current Visit: Yes Status: Acute Plan to address problem: On high flow oxygenIV Decadron positive for coronavirus (4) DVT prophylaxis Current Visit: Yes Status: Acute Plan to address problem: Patient placed on subcutaneous Lovenox. (5) Full code status Current Visit: Yes Status: Acute Subjective Date of service: 05/04/20 Principal diagnosis: COVID-19 positive test (U07.1, COVID-19) with Acute Pn eumonia (J12.89, O Interval history: 54-year-old female no known past medical history admitted to the hospital complaining of shortness of breath. She also reports a chest discomfort at the same time she was initially diagnosed COVID-19 approximately a week prior to admission, but her symptoms only began the day of admission to hospital. She also reports associated fever and cough. Found to be hypoxic in the emergency room Febrile to 101.1 with a normal white count of 8. Currently seeing ceftriaxone and azithromycin. Blood cultures currently pending. Procalcitonin is normal. Currently receiving high flow nasal cannula 25 L/min. Objective - Constitutional Vitals: Vital Signs - 12hr 05/04/20 05/04/20 05/04/20 05:00 06:00 07:00 Temperature Pulse Rate 85 78 92 H Pulse Rate [ From Monitor] Respiratory 27 H 20 19 Rate Blood Pressure 138/85 127/69 152/82 O2 Sat by Pulse 98 97 97 Oximetry 05/04/20 05/04/20 05/04/20 08:00 09:00 10:00 Temperature 98.4 F Pulse Rate 94 H 96 H 92 H Pulse Rate [ 90 From Monitor] Respiratory 22 22 38 H Rate Blood Pressure 143/93 138/87 132/78 O2 Sat by Pulse 97 94 96 Oximetry 05/04/20 05/04/20 05/04/20 10:44 11:00 12:00 Temperature 99.0 F Pulse Rate 88 92 H Pulse Rate [ 96 H From Monitor] Respiratory 31 H 28 H Rate Blood Pressure 134/80 150/92 O2 Sat by Pulse 96 94 96 Oximetry 05/04/20 05/04/20 05/04/20 13:00 14:00 15:00 Temperature Pulse Rate 96 H 95 H 99 H Pulse Rate [ From Monitor] Respiratory 33 H 34 H 26 H Rate Blood Pressure 154/97 134/89 151/95 O2 Sat by Pulse 96 93 93 Oximetry General appearance: Present: severe distress - EENT Eyes: PERRL, EOM intact ENT: hearing intact, clear oral mucosa Ears: bilateral: normal - Neck Neck: supple, normal ROM - Respiratory Respiratory effort: normal Respiratory: bilateral: CTA - Breasts Breasts: normal - Cardiovascular Heart rate: 98 Rhythm: regular Heart Sounds: Present: S1 & S2. Absent: gallop, rub Extremities: pulses intact, No edema, normal color, Full ROM - Gastrointestinal General gastrointestinal: Present: soft, non-tender, non-distended, normal bowel sounds - Genitourinary Female genitourinary: normal - Integumentary Integumentary: clear, warm, dry - Musculoskeletal Musculoskeletal: 1, strength equal bilaterally - Neurologic Neurologic: moves all extremities - Psychiatric Psychiatric: memory intact, appropriate mood/affect, intact judgment & insight - Labs CBC & Chem 7: 05/05/20 00:35 05/03/20 04:45 Labs: Abnormal lab results 05/03/20 Range/Units 16:35 ABG pO2 72.1 L (80.0-90.0) mm Hg Oxyhemoglobin 93.8 L (95.0-99.0) % HEART Score - HEART Score Troponin: Troponin T < 0.010 ng/mL (0.00-0.029) 05/01/20 22:50
[2020-05-04] MEDS: ACETAMINOPHEN 325 MG TAB PO PRN (21:47)
[2020-05-04] MEDS: ENOXAPARIN 40 MG/0.4 ML INJ SUB-Q SCH (21:48)
[2020-05-05 01:10] LABS: Basophils % (Auto) 0.2 % (0.0-1.8); Eosinophils % (Auto) 0.1 % (0.0-4.3); Hematocrit 44.3 % (30.3-42.9); Hemoglobin 14.1 gm/dl (10.1-14.3); Lymphocytes # (Auto) 0.9 K/mm3 (1.2-5.4); Lymphocytes % (Auto) 9.8 % (13.4-35.0); Mean Corpuscular HGB Conc 32 % (30-34); Mean Corpuscular Volume 81 fl (79-97); Monocytes # (Auto) 0.7 K/mm3 (0.0-0.8); Monocytes % (Auto) 7.7 % (0.0-7.3); Platelet Count 124 K/mm3 (140-440); Red Blood Count 5.47 M/mm3 (3.65-5.03)
[2020-05-05] MEDS: LEVOTHYROXINE 25 MCG TAB PO SCH (05:58)
[2020-05-05 06:02] LABS: C-Reactive Protein 6.5 mg/dL (0.00-1.30)
[2020-05-05] MEDS: ACETAMINOPHEN 325 MG TAB PO PRN (10:00)
--- NOTE | 2020-05-05 10:38 | Progress Note ---
Assessment and Plan Patient alert, awake. Patient is on vapotherm, FIO2 60%. O2 saturation running 96%. Patient says breathing better. Patient afebrile, No leukocytosis. Chest x-ray reveals bilateral pneumonia. He has been placed on empiric IV antibiotics and IV steroid patient placed on isolation precautions for COVID-19. Patient is on ceftrioxone, Zithromax and dexamethasone and S/C Lovenox. Patient was seen in IMCU.I spent direct critical care time of 35 minutes on this patient , review the chart, Examining the patient, review chest xray and lab re sults, talking to respiratory therapy, nursing staff and work out plan of treatment in this critically ill COVID positive patient. - Patient Problems (1) COVID-19 Current Visit: Yes Status: Acute Plan to address problem: Patient is on dexamethasone and S/C Lovenox. Antibiotics as per infectious diseases. (2) Pneumonia Current Visit: Yes Status: Acute Qualifiers: Pneumonia type: due to unspecified organism Laterality: bilateral Lung location: unspecified part of lung Qualified Code(s): J18.9 - Pneumonia, unspecified organism Plan to address problem: Patient was on ceftrioxone, Zithromax. Antibiotics stopped. Management as per infectious diseases. (3) Respiratory failure Current Visit: Yes Status: Acute Qualifiers: Chronicity: acute Respiratory failure complication: hypoxia Qualified Code(s): J96.01 - Acute respiratory failure with hypoxia Plan to address problem: Patient is on Vapotherm, FIO2 60%. O2 saturation 96%. (4) Chest pain Current Visit: Yes Status: Acute Qualifiers: Chest pain type: unspecified Qualified Code(s): R07.9 - Chest pain, unspecified Plan to address problem: Recommend to consult cardiology. (5) Fever Current Visit: Yes Status: Acute Qualifiers: Fever type: unspecified Qualified Code(s): R50.9 - Fever, unspecified Plan to address problem: Patient afebrile to day. Subjective Date of service: 05/05/20 Interval history: Patient alert, awake. Patient is on vapotherm, FIO2 60%. O2 saturation running 96%. Patient says breathing better. Patient afebrile, No leukocytosis. Chest x-ray reveals bilateral pneumonia. He has been placed on empiric IV antibiotics and IV steroid patient placed on isolation precautions for COVID-19. Patient is on ceftrioxone, Zithromax and dexamethasone and S/C Lovenox. Objective Vital Signs - 12hr 05/04/20 05/04/20 05/05/20 23:00 23:26 00:00 Temperature 98.0 F Pulse Rate 99 H 82 83 Pulse Rate [ 92 H From Monitor] Respiratory 20 26 H 28 H Rate Blood Pressure 138/95 138/95 128/89 O2 Sat by Pulse 95 94 95 Oximetry 05/05/20 05/05/20 05/05/20 01:00 02:00 03:00 Temperature Pulse Rate 73 73 69 Pulse Rate [ From Monitor] Respiratory 26 H 27 H 28 H Rate Blood Pressure 124/72 129/72 133/65 O2 Sat by Pulse 95 95 93 Oximetry 05/05/20 05/05/20 05/05/20 04:00 05:49 06:00 Temperature 98.0 F Pulse Rate 75 72 78 Pulse Rate [ 84 From Monitor] Respiratory 28 H 25 H 19 Rate Blood Pressure 119/69 150/86 150/86 O2 Sat by Pulse 93 93 94 Oximetry 05/05/20 05/05/20 08:00 09:30 Temperature 97.5 F L Pulse Rate Pulse Rate [ From Monitor] Respiratory Rate Blood Pressure O2 Sat by Pulse 91 Oximetry Constitutional: no acute distress, alert, other (Morbidly Obese.) Eyes: non-icteric ENT: oropharynx moist Neck: supple, no JVD Effort: mildly labored Ascultation: Bilateral: diminished breath sounds, rhonchi Cardiovascular: regular rate and rhythm Gastrointestinal: normoactive bowel sounds, soft, non-tender Integumentary: normal Extremities: no cyanosis, no edema Neurologic: normal mental status, non-focal exam, pupils equal and round, CN II- XII normal CBC and BMP: 05/05/20 00:35 05/03/20 04:45 ABG, PT/INR, D-dimer: ABG ABG pH 7.420 pH Units (7.350-7.450) 05/03/20 16:35 ABG pCO2 37.9 mm Hg 05/03/20 16:35 ABG pO2 72.1 mm Hg (80.0-90.0) L 05/03/20 16:35 ABG O2 Saturation 95.0 % (95.0-99.0) 05/03/20 16:35 PT/INR, D-dimer PT 14.2 Sec. (12.2-14.9) 05/03/20 04:45 INR 1.08 (0.87-1.13) 05/03/20 04:45 D-Dimer > 46244 ng/mlDDU (0-234) H 05/05/20 05:05 Abnormal lab findings: Abnormal Labs 05/01/20 05/01/20 05/01/20 22:50 22:50 22:50 WBC RBC 5.68 H Hgb 14.6 H Hct 45.6 H MCH 26 L Plt Count Lymph % (Auto) 10.6 L [place] % (Auto) 10.0 H Lymph # 0.9 L [place] # Seg Neutrophils % 79.1 H Seg Neutrophils # D-Dimer 835.72 H ABG pO2 Oxyhemoglobin Glucose 102 H AST 54 H ALT 93 H Lactate Dehydrogenase C-Reactive Protein Total Protein 8.7 H Albumin 3.4 L Urine WBC (Auto) 05/01/20 05/02/20 05/02/20 22:50 00:54 13:55 WBC RBC Hgb Hct MCH Plt Count Lymph % (Auto) [place] % (Auto) Lymph # [place] # Seg Neutrophils % Seg Neutrophils # D-Dimer ABG pO2 117.3 H Oxyhemoglobin Glucose 104 H AST ALT Lactate Dehydrogenase 398 H C-Reactive Protein 6.70 H Total Protein Albumin Urine WBC (Auto) 8.0 H 05/03/20 05/03/20 05/03/20 04:45 04:45 16:35 WBC 13.1 H RBC 5.32 H Hgb Hct MCH 26 L Plt Count Lymph % (Auto) 8.3 L [place] % (Auto) 8.1 H Lymph # 1.1 L [place]att # 1.1 H Seg Neutrophils % 83.4 H Seg Neutrophils # 10.9 H D-Dimer ABG pO2 72.1 L Oxyhemoglobin 93.8 L Glucose 110 H AST ALT Lactate Dehydrogenase C-Reactive Protein Total Protein Albumin Urine WBC (Auto) 05/05/20 05/05/20 05/05/20 00:35 05:05 05:05 WBC RBC 5.47 H Hgb Hct 44.3 H MCH 26 L Plt Count 124 L Lymph % (Auto) 9.8 L [place] % (Auto) 7.7 H Lymph # 0.9 L [place] # Seg Neutrophils % 82.2 H Seg Neutrophils # 7.9 H D-Dimer > 91739 H ABG pO2 Oxyhemoglobin Glucose AST ALT Lactate Dehydrogenase 377 H C-Reactive Protein 6.50 H Total Protein Albumin Urine WBC (Auto) Chest x-ray: report reviewed, image reviewed Additional Studies: CHEST 1 VIEW 05/04/20 INDICATION / CLINICAL INFORMATION: Multifocal PNEUMONIA, COVID positive. COMPARISON: 05/01/2020 FINDINGS: SUPPORT DEVICES: None. HEART / MEDIASTINUM: No significant abnormality. LUNGS / PLEURA: Slight worsening of bilateral multifocal patchy airspace disease. No pneumothorax. No pleural effusion. ADDITIONAL FINDINGS: No significant additional findings. IMPRESSION: Slight worsening of bilateral multifocal pneumonia.
[2020-05-05] MEDS: DEXAMETHASONE 2 MG TAB PO SCH (12:04)
--- NOTE | 2020-05-05 17:49 | Progress Note ---
Assessment and Plan Cultures: Blood culture 05/02/2020 pending A/P: 54-year-old female no known past medical history admitted with COVID-19 pneumonia. #Acute hypoxemic respiratory failure: Likely secondary to COVID-19 infection. Currently on high flow nasal cannula #Severe COVID-19 pneumonia: Patient presented with a week of symptoms, chest x- ray with diffuse bilateral infiltrates, currently on high flow nasal cannula. Inflammatory markers normal. Recs: -Continue dexamethasone 6 mg IV/PO daily for 10 days -Obtain daily inflammatory markers - ferritin, Ddimer, CRP, LDH -Ferritin is normal, will hold on Actemra for now. -Consider prophylactic anticoagulation -Consider enroling in covid convalescent plasma trial Thank you for the consult, we will continue to follow. Richy Lagos MD [facility] ([facility]) M: [phone] O: [phone] F: [phone] Subjective Date of service: 05/05/20 Interval history: Afebrile, normal white count now. Currently on high flow nasal cannula 30/60% Objective - Exam Narrative Exam: Physical exam deferred due to PPE conservation strategy. Please refer to primary team's note. - Constitutional Vitals: Vital Signs Temp Pulse Resp BP Pulse Ox 97.2 F L 86 10 L 126/86 94 05/05/20 12:00 05/05/20 17:00 05/05/20 17:00 05/05/20 17:00 05/05/20 17:00 Temperature -Last 24 Hours Temperature 97.2 F Temperature 97.5 F Temperature 98.0 F Temperature 98.0 F Temperature 98.1 F - Labs CBC & Chem 7: 05/05/20 00:35 05/03/20 04:45 Labs: Abnormal lab results 05/05/20 05/05/20 05/05/20 Range/Units 00:35 05:05 05:05 RBC 5.47 H (3.65-5.03) M/mm3 Hct 44.3 H (30.3-42.9) % MCH 26 L (28-32) pg Plt Count 124 L (140-440) K/mm3 Lymph % (Auto) 9.8 L (13.4-35.0) % [place] % (Auto) 7.7 H (0.0-7.3) % Lymph # 0.9 L (1.2-5.4) K/mm3 Seg Neutrophils % 82.2 H (40.0-70.0) % Seg Neutrophils # 7.9 H (1.8-7.7) K/mm3 D-Dimer > 45065 H (0-234) ng/mlDDU Lactate Dehydrogenase 377 H (91-180) units/L C-Reactive Protein 6.50 H (0.00-1.30) mg/dL
--- NOTE | 2020-05-05 21:48 | Progress Note ---
Assessment and Plan The high probability OF a clinically significant sudden or life-threatening deterioration of the cardiorespiratory system and endocrine system required my full and direct attention, intervention and postoperative management. The aggregate critical care time was 32 minutes. The time is in addition to time spent performing reported procedures but includes the followin: Data review and interpretation 2: Patient assessment and monitoring of vital signs 3: Documentation 4:: Medication orders and management (1) Pneumonia Current Visit: Yes Status: Acute Qualifiers: Pneumonia type: due to unspecified organism Laterality: bilateral Lung location: unspecified part of lung Qualified Code(s): J18.9 - Pneumonia, unspecified organism Plan to address problem: IV antibiotics discontinued (2) Respiratory failure Current Visit: Yes Status: Acute Qualifiers: Chronicity: acute Respiratory failure complication: hypoxia Qualified Code(s): J96.01 - Acute respiratory failure with hypoxia Plan to address problem: Patient on high flow oxygen Positive for coronavirus Proning position (3) Suspected COVID-19 virus infection Current Visit: Yes Status: Acute Plan to address problem: On high flow oxygenIV Decadron positive for coronavirus (4) DVT prophylaxis Current Visit: Yes Status: Acute Plan to address problem: Patient placed on subcutaneous Lovenox. (5) Full code status Current Visit: Yes Status: Acute Subjective Date of service: 05/05/20 Principal diagnosis: Bilateral covered positive pneumonia and acute respiratory failure Interval history: 54-year-old female no known past medical history admitted to the hospital complaining of shortness of breath. She also reports a chest discomfort at the same time she was initially diagnosed COVID-19 approximately a week prior to admission, but her symptoms only began the day of admission to hospital. She also reports associated fever and cough. Found to be hypoxic in the emergency room Procalcitonin is normal. Currently receiving high flow nasal cannula 25 L/min. Patient doing better Patient to be transferred to regular medical floor Objective - Constitutional Vitals: Vital Signs - 12hr 05/05/20 05/05/20 05/05/20 10:00 11:00 12:00 Temperature 97.2 F L Pulse Rate 77 75 87 Respiratory 18 20 14 Rate Blood Pressure 142/88 130/83 129/87 O2 Sat by Pulse 94 97 96 Oximetry 05/05/20 05/05/20 05/05/20 13:00 14:00 15:00 Temperature Pulse Rate 87 80 71 Respiratory 16 17 18 Rate Blood Pressure 129/87 111/66 115/75 O2 Sat by Pulse 95 94 94 Oximetry 05/05/20 05/05/20 05/05/20 15:51 16:00 17:00 Temperature 97.4 F L Pulse Rate 71 86 Respiratory 12 10 L Rate Blood Pressure 121/72 126/86 O2 Sat by Pulse 92 95 94 Oximetry 05/05/20 19:58 Temperature Pulse Rate Respiratory Rate Blood Pressure O2 Sat by Pulse 95 Oximetry General appearance: Present: mild distress, well-nourished - EENT Eyes: PERRL, EOM intact ENT: hearing intact, clear oral mucosa Ears: bilateral: normal - Neck Neck: supple, normal ROM - Respiratory Respiratory effort: normal Respiratory: bilateral: CTA - Breasts Breasts: normal - Cardiovascular Heart rate: 78 Rhythm: regular Heart Sounds: Present: S1 & S2. Absent: gallop, rub Extremities: pulses intact, No edema, normal color, Full ROM - Gastrointestinal General gastrointestinal: Present: soft, non-tender, non-distended, normal bowel sounds - Genitourinary Female genitourinary: normal - Integumentary Integumentary: clear, warm, dry - Musculoskeletal Musculoskeletal: 1, strength equal bilaterally - Neurologic Neurologic: moves all extremities - Psychiatric Psychiatric: memory intact, appropriate mood/affect, intact judgment & insight - Labs CBC & Chem 7: 05/05/20 00:35 05/03/20 04:45 Labs: Abnormal lab results 05/05/20 05/05/20 05/05/20 Range/Units 00:35 05:05 05:05 RBC 5.47 H (3.65-5.03) M/mm3 Hct 44.3 H (30.3-42.9) % MCH 26 L (28-32) pg Plt Count 124 L (140-440) K/mm3 Lymph % (Auto) 9.8 L (13.4-35.0) % [place] % (Auto) 7.7 H (0.0-7.3) % Lymph # 0.9 L (1.2-5.4) K/mm3 Seg Neutrophils % 82.2 H (40.0-70.0) % Seg Neutrophils # 7.9 H (1.8-7.7) K/mm3 D-Dimer > 48355 H (0-234) ng/mlDDU Lactate Dehydrogenase 377 H (91-180) units/L C-Reactive Protein 6.50 H (0.00-1.30) mg/dL HEART Score - HEART Score Troponin: Troponin T < 0.010 ng/mL (0.00-0.029) 05/01/20 22:50
[2020-05-05] MEDS: MORPHINE 2 MG/1 ML INJ IV PRN (21:50)
[2020-05-05] MEDS: ENOXAPARIN 40 MG/0.4 ML INJ SUB-Q SCH (21:50)
[2020-05-06] MEDS: LEVOTHYROXINE 25 MCG TAB PO SCH (06:05)
[2020-05-06] MEDS: DEXAMETHASONE 2 MG TAB PO SCH (10:00)
--- NOTE | 2020-05-06 13:55 | Progress Note ---
Assessment and Plan Cultures: Blood culture 05/02/2020 pending A/P: 54-year-old female no known past medical history admitted with COVID-19 pneumonia. #Acute hypoxemic respiratory failure: Likely secondary to COVID-19 infection. Currently on high flow nasal cannula #Severe COVID-19 pneumonia: Patient presented with a week of symptoms, chest x- ray with diffuse bilateral infiltrates, currently on high flow nasal cannula. Inflammatory markers normal. Recs: -Continue dexamethasone 6 mg IV/PO daily for 10 days -Obtain daily inflammatory markers - ferritin, Ddimer, CRP, LDH -Ferritin is normal, will hold on Actemra for now. -Consider prophylactic anticoagulation -Consider enroling in covid convalescent plasma trial- can hold of for now as patient is improving. Thank you for the consult, we will continue to follow. Richy Lagos MD [facility] ([facility]) M: [phone] O: [phone] F: [phone] Subjective Date of service: 05/06/20 Interval history: Afebrile, currently on high flow nasal cannula 6/100% which is improved from yesterday. Objective - Exam Narrative Exam: Physical exam deferred due to PPE conservation strategy. Please refer to primary team's note. - Constitutional Vitals: Vital Signs Temp Pulse Resp BP Pulse Ox 98.6 F 79 24 135/73 92 05/06/20 10:57 05/06/20 10:57 05/06/20 10:57 05/06/20 10:57 05/06/20 10:57 Temperature -Last 24 Hours Temperature 98.6 F Temperature 98.1 F Temperature 98.1 F Temperature 97.4 F - Labs CBC & Chem 7: 05/05/20 00:35 05/03/20 04:45 Labs: Abnormal lab results 05/06/20 Range/Units 06:06 POC Glucose 265 H (70-105)
--- NOTE | 2020-05-06 14:14 | Progress Note ---
Assessment and Plan Patient alert, awake. Patient is on 5 litres O2. O2 saturation running 94%. Patient says breathing better.Patient says walking in the room. Patient afebrile, No leukocytosis. Chest x-ray reveals bilateral pneumonia. He was placed on empiric IV antibiotics and IV steroid patient placed on isolation precautions for COVID-19. Patient was on ceftrioxone, Zithromax and dexamethasone and S/C Lovenox. Patient presently on Dexamethasone and S/C Lovenox. - Patient Problems (1) COVID-19 Current Visit: Yes Status: Acute Plan to address problem: Patient is on dexamethasone and S/C Lovenox. Antibiotics as per infectious diseases. (2) Pneumonia Current Visit: Yes Status: Acute Qualifiers: Pneumonia type: due to unspecified organism Laterality: bilateral Lung location: unspecified part of lung Qualified Code(s): J18.9 - Pneumonia, unspecified organism Plan to address problem: Patient was on ceftrioxone, Zithromax. Antibiotics stopped. Management as per infectious diseases. (3) Respiratory failure Current Visit: Yes Status: Acute Qualifiers: Chronicity: acute Respiratory failure complication: hypoxia Qualified Code(s): J96.01 - Acute respiratory failure with hypoxia Plan to address problem: Patient is on 5 litres O2. O2 saturation 94%. (4) Chest pain Current Visit: Yes Status: Acute Qualifiers: Chest pain type: unspecified Qualified Code(s): R07.9 - Chest pain, unspecified Plan to address problem: Recommend to consult cardiology. (5) Fever Current Visit: Yes Status: Acute Qualifiers: Fever type: unspecified Qualified Code(s): R50.9 - Fever, unspecified Plan to address problem: Patient afebrile to day. Subjective Date of service: 05/06/20 Interval history: Patient alert, awake. Patient is on 5 litres O2. O2 saturation running 94%. Patient says breathing better.Patient says walking in the room. Patient afebrile, No leukocytosis. Chest x-ray reveals bilateral pneumonia. He was placed on empiric IV antibiotics and IV steroid patient placed on isolation precautions for COVID-19. Patient was on ceftrioxone, Zithromax and dexamethasone and S/C Lovenox. Patient presently on Dexamethasone and S/C Lovenox. Objective Vital Signs - 12hr 05/06/20 05/06/20 05/06/20 04:00 04:54 06:36 Temperature 98.1 F Pulse Rate 82 66 Respiratory 18 Rate Blood Pressure 136/72 O2 Sat by Pulse 93 95 Oximetry 05/06/20 05/06/20 05/06/20 10:10 10:57 14:00 Temperature 98.6 F Pulse Rate 79 Respiratory 24 Rate Blood Pressure 135/73 O2 Sat by Pulse 93 92 94 Oximetry Constitutional: no acute distress, alert, other (Morbidly Obese.) Eyes: non-icteric ENT: oropharynx moist Neck: supple, no JVD Effort: mildly labored Ascultation: Bilateral: diminished breath sounds, rhonchi Cardiovascular: regular rate and rhythm Gastrointestinal: normoactive bowel sounds, soft, non-tender Integumentary: normal Extremities: no cyanosis, no edema Neurologic: normal mental status, non-focal exam, pupils equal and round, CN II- XII normal Psychiatric: mood appropriate CBC and BMP: 05/05/20 00:35 05/03/20 04:45 ABG, PT/INR, D-dimer: ABG ABG pH 7.420 pH Units (7.350-7.450) 05/03/20 16:35 ABG pCO2 37.9 mm Hg 05/03/20 16:35 ABG pO2 72.1 mm Hg (80.0-90.0) L 05/03/20 16:35 ABG O2 Saturation 95.0 % (95.0-99.0) 05/03/20 16:35 PT/INR, D-dimer PT 14.2 Sec. (12.2-14.9) 05/03/20 04:45 INR 1.08 (0.87-1.13) 05/03/20 04:45 D-Dimer > 63140 ng/mlDDU (0-234) H 05/05/20 05:05 Abnormal lab findings: Abnormal Labs 05/01/20 05/01/20 05/01/20 22:50 22:50 22:50 WBC RBC 5.68 H Hgb 14.6 H Hct 45.6 H MCH 26 L Plt Count Lymph % (Auto) 10.6 L [place] % (Auto) 10.0 H Lymph # 0.9 L [place] # Seg Neutrophils % 79.1 H Seg Neutrophils # D-Dimer 835.72 H ABG pO2 Oxyhemoglobin Glucose 102 H POC Glucose AST 54 H ALT 93 H Lactate Dehydrogenase C-Reactive Protein Total Protein 8.7 H Albumin 3.4 L Urine WBC (Auto) 05/01/20 05/02/20 05/02/20 22:50 00:54 13:55 WBC RBC Hgb Hct MCH Plt Count Lymph % (Auto) [place] % (Auto) Lymph # [place] # Seg Neutrophils % Seg Neutrophils # D-Dimer ABG pO2 117.3 H Oxyhemoglobin Glucose 104 H POC Glucose AST ALT Lactate Dehydrogenase 398 H C-Reactive Protein 6.70 H Total Protein Albumin Urine WBC (Auto) 8.0 H 05/03/20 05/03/20 05/03/20 04:45 04:45 16:35 WBC 13.1 H RBC 5.32 H Hgb Hct MCH 26 L Plt Count Lymph % (Auto) 8.3 L [place] % (Auto) 8.1 H Lymph # 1.1 L [place] # 1.1 H Seg Neutrophils % 83.4 H Seg Neutrophils # 10.9 H D-Dimer ABG pO2 72.1 L Oxyhemoglobin 93.8 L Glucose 110 H POC Glucose AST ALT Lactate Dehydrogenase C-Reactive Protein Total Protein Albumin Urine WBC (Auto) 05/05/20 05/05/20 05/05/20 00:35 05:05 05:05 WBC RBC 5.47 H Hgb Hct 44.3 H MCH 26 L Plt Count 124 L Lymph % (Auto) 9.8 L [place] % (Auto) 7.7 H Lymph # 0.9 L [place] # Seg Neutrophils % 82.2 H Seg Neutrophils # 7.9 H D-Dimer > 48078 H ABG pO2 Oxyhemoglobin Glucose POC Glucose AST ALT Lactate Dehydrogenase 377 H C-Reactive Protein 6.50 H Total Protein Albumin Urine WBC (Auto) 05/06/20 06:06 WBC RBC Hgb Hct MCH Plt Count Lymph % (Auto) [place] % (Auto) Lymph # [place] # Seg Neutrophils % Seg Neutrophils # D-Dimer ABG pO2 Oxyhemoglobin Glucose POC Glucose 265 H AST ALT Lactate Dehydrogenase C-Reactive Protein Total Protein Albumin Urine WBC (Auto)
[2020-05-06] MEDS: ENOXAPARIN 40 MG/0.4 ML INJ SUB-Q SCH (21:29)
[2020-05-07] MEDS: LEVOTHYROXINE 25 MCG TAB PO SCH (05:11)
[2020-05-07 07:35] LABS: C-Reactive Protein 0.8 mg/dL (0.00-1.30)
[2020-05-07] MEDS: ENOXAPARIN 40 MG/0.4 ML INJ SUB-Q SCH ×2 (09:45→22:15)
[2020-05-07] MEDS: DEXAMETHASONE 2 MG TAB PO SCH (09:46)
--- NOTE | 2020-05-07 10:59 | Progress Note ---
Assessment and Plan (1) Pneumonia Current Visit: Yes Status: Acute Qualifiers: Pneumonia type: due to unspecified organism Laterality: bilateral Lung location: unspecified part of lung Qualified Code(s): J18.9 - Pneumonia, unspecified organism Plan to address problem: IV antibiotics discontinued (2) Respiratory failure Current Visit: Yes Status: Acute Qualifiers: Chronicity: acute Respiratory failure complication: hypoxia Qualified Code(s): J96.01 - Acute respiratory failure with hypoxia Plan to address problem: Patient on high flow oxygen Positive for coronavirus Proning position (3) Suspected COVID-19 virus infection Current Visit: Yes Status: Acute Plan to address problem: On high flow oxygenIV Decadron positive for coronavirus (4) DVT prophylaxis Current Visit: Yes Status: Acute Plan to address problem: Patient placed on subcutaneous Lovenox. (5) Full code status Current Visit: Yes Status: Acute Subjective Date of service: 05/06/20 Principal diagnosis: COVID pneumonia, acute respiratory failure with hypoxia Interval history: 54-year-old female no known past medical history admitted to the hospital complaining of shortness of breath. She also reports a chest discomfort at the same time she was initially diagnosed COVID-19 approximately a week prior to admission, but her symptoms only began the day of admission to hospital. She also reports associated fever and cough. Found to be hypoxic in the emergency room Procalcitonin is normal. Currently receiving high flow nasal cannula oxygen Patient doing better Transferred from ICU to regular medical floor 05/05/2020 Objective - Constitutional Vitals: Vital Signs - 12hr 05/07/20 05/07/20 03:57 05:44 Temperature 97.3 F L Pulse Rate 68 Respiratory 18 Rate Blood Pressure 121/65 O2 Sat by Pulse 93 100 Oximetry General appearance: Present: mild distress, well-nourished - EENT Eyes: PERRL, EOM intact ENT: hearing intact, clear oral mucosa Ears: bilateral: normal - Neck Neck: supple, normal ROM - Respiratory Respiratory effort: normal Respiratory: bilateral: CTA - Breasts Breasts: normal - Cardiovascular Heart rate: 78 Rhythm: regular Heart Sounds: Present: S1 & S2. Absent: gallop, rub Extremities: pulses intact, No edema, normal color, Full ROM - Gastrointestinal General gastrointestinal: Present: soft, non-tender, non-distended, normal bowel sounds - Genitourinary Female genitourinary: normal - Integumentary Integumentary: clear, warm, dry - Musculoskeletal Musculoskeletal: 1, strength equal bilaterally - Neurologic Neurologic: moves all extremities - Psychiatric Psychiatric: memory intact, appropriate mood/affect, intact judgment & insight - Labs CBC & Chem 7: 05/05/20 00:35 05/03/20 04:45 Labs: Abnormal lab results 05/05/20 05/07/20 05/07/20 Range/Units Unknown 06:44 06:44 D-Dimer > 40351 H (0-234) ng/mlDDU Lactate Dehydrogenase 280 H (91-180) units/L Coronavirus (PCR) Positive A (Negative) HEART Score - HEART Score Troponin: Troponin T < 0.010 ng/mL (0.00-0.029) 05/01/20 22:50
--- NOTE | 2020-05-07 14:40 | Progress Note ---
Assessment and Plan (1) Pneumonia Current Visit: Yes Status: Acute Qualifiers: Pneumonia type: due to unspecified organism Laterality: bilateral Lung location: unspecified part of lung Qualified Code(s): J18.9 - Pneumonia, unspecified organism Plan to address problem: IV antibiotics discontinued (2) Respiratory failure Current Visit: Yes Status: Acute Qualifiers: Chronicity: acute Respiratory failure complication: hypoxia Qualified Code(s): J96.01 - Acute respiratory failure with hypoxia Plan to address problem: Patient on high flow oxygen Positive for coronavirus Proning position (3) Suspected COVID-19 virus infection Current Visit: Yes Status: Acute Plan to address problem: On high flow oxygen -Continue dexamethasone 6 mg IV/PO daily for 10 days -Obtain daily inflammatory markers - ferritin, Ddimer, CRP, LDH -Ferritin is normal, will hold on Actemra for now. -Consider prophylactic anticoagulation -Consider enroling in covid convalescent plasma trial- can hold of for now as patient is improving. (4) DVT prophylaxis Current Visit: Yes Status: Acute Plan to address problem: Patient placed on subcutaneous Lovenox. (5) Full code status Current Visit: Yes Status: Acute Subjective Date of service: 05/07/20 Principal diagnosis: COVID pneumonia and acute respiratory failure with hypoxia Interval history: 54-year-old female no known past medical history admitted to the hospital complaining of shortness of breath. She also reports a chest discomfort at the same time she was initially diagnosed COVID-19 approximately a week prior to admission, but her symptoms only began the day of admission to hospital. She also reports associated fever and cough. Found to be hypoxic in the emergency room Procalcitonin is normal. Currently receiving high flow nasal cannula oxygen Patient doing better Transferred from ICU on 05/05/2020 Objective - Constitutional Vitals: Vital Signs - 12hr 05/07/20 05/07/20 05/07/20 03:57 05:44 10:00 Temperature 97.3 F L Pulse Rate 68 Respiratory 18 Rate Blood Pressure 121/65 O2 Sat by Pulse 93 100 93 Oximetry 05/07/20 11:38 Temperature 98.2 F Pulse Rate 83 Respiratory 22 Rate Blood Pressure 118/71 O2 Sat by Pulse 93 Oximetry General appearance: Present: mild distress, well-nourished - EENT Eyes: PERRL, EOM intact ENT: hearing intact, clear oral mucosa Ears: bilateral: normal - Neck Neck: supple, normal ROM - Respiratory Respiratory effort: normal Respiratory: bilateral: CTA - Breasts Breasts: normal - Cardiovascular Heart rate: 88 Rhythm: regular Heart Sounds: Present: S1 & S2. Absent: gallop, rub Extremities: pulses intact, No edema, normal color, Full ROM - Gastrointestinal General gastrointestinal: Present: soft, non-tender, non-distended, normal bowel sounds - Genitourinary Female genitourinary: normal - Integumentary Integumentary: clear, warm, dry - Musculoskeletal Musculoskeletal: 1, strength equal bilaterally - Neurologic Neurologic: moves all extremities - Psychiatric Psychiatric: memory intact, appropriate mood/affect, intact judgment & insight - Labs CBC & Chem 7: 05/05/20 00:35 05/03/20 04:45 Labs: Abnormal lab results 05/07/20 05/07/20 Range/Units 06:44 06:44 D-Dimer > 58397 H (0-234) ng/mlDDU Lactate Dehydrogenase 280 H (91-180) units/L HEART Score - HEART Score Troponin: Troponin T < 0.010 ng/mL (0.00-0.029) 05/01/20 22:50
--- NOTE | 2020-05-07 14:50 | Progress Note ---
Assessment and Plan Cultures: Blood culture 05/02/2020 pending A/P: 54-year-old female no known past medical history admitted with COVID-19 pneumonia. #Acute hypoxemic respiratory failure: Likely secondary to COVID-19 infection. Currently on 4 L nasal cannula #Severe COVID-19 pneumonia: Patient presented with a week of symptoms, chest x- ray with diffuse bilateral infiltrates, currently on high flow nasal cannula. Inflammatory markers normal. Recs: -Continue dexamethasone 6 mg IV/PO daily for 10 days -Obtain daily inflammatory markers - ferritin, Ddimer, CRP, LDH -Ferritin is normal, will hold on Actemra for now. -prophylactic anticoagulation -Okay for discharge from infectious disease perspective when stable from a respiratory standpoint. Thank you for the consult, we will continue to follow. Richy Lagos MD [facility] ([facility]) M: [phone] O: [phone] F: [phone] Subjective Date of service: 05/07/20 Interval history: Afebrile, now out of IMCU. Currently on 4 L nasal cannula. Objective - Exam Narrative Exam: Physical exam deferred due to PPE conservation strategy. Please refer to primary team's note. - Constitutional Vitals: Vital Signs Temp Pulse Resp BP Pulse Ox 98.2 F 83 22 118/71 93 05/07/20 11:38 05/07/20 11:38 05/07/20 11:38 05/07/20 11:38 05/07/20 11:38 Temperature -Last 24 Hours Temperature 98.2 F Temperature 97.3 F Temperature 98.7 F Temperature 98.7 F - Labs CBC & Chem 7: 05/05/20 00:35 05/03/20 04:45 Labs: Abnormal lab results 05/07/20 05/07/20 Range/Units 06:44 06:44 D-Dimer > 76727 H (0-234) ng/mlDDU Lactate Dehydrogenase 280 H (91-180) units/L
--- NOTE | 2020-05-07 17:08 | Progress Note ---
Assessment and Plan Acute hypoxemic respiratory failure on HFOT COVID infection (diagnosed COVID-19 approximately a week prior to admission) Multifocal pneumonia Morbid obesity Hypothyroidism - prn CXR's & ABG's at this point - wean supplemental oxygen for target O2 sats > 92% - awake proning per facility protocol - continue conservative volume management strategies as tolerated by hemodynamics and renal function - Bronchodilators with pulmonary hygiene per RT-MDR - Accuchecks with glycemic control per SSI for target blood glucose of < 180 mg/dL; avoid hypoglycemia - Avoid benzodiazepines, reduce the possibility of delirium - prn analgesia per pain score - Maintenance of sleep-wake cycle, avoid delirium - Avoid nephrotoxins, closely monitor renal function - Stress ulcer prophylaxis while on steroids - Mobility protocol, off loading and skin assessment for pressure ulcer prevention - Monitor hemodynamics closely - Supportive transfusions as indicated to keep HgB >7g/dL - Chronic home medications as clinically indicated, resume Levothyroxine - Continue to monitor closely COVID SPECIFIC INTERVENTIONS - Airborne, contact isolation for COVID per facility protocols - Lateral decubitus and awake proning, encouraged at the bedside - s/p systemic steroids- dexamethasone (completed 10 days of therapy) - Trend d-dimer,and other inflammatory markers per facility protocol - VTE prophyalxis (venous dopplers -ve for DVT) - Continue all supportive care - continue other care per attending / other consultants ... re-evaluate in am & prn Subjective Date of service: 05/07/20 Principal diagnosis: Ac. hypoxemic resp failure; COVID-19 infxn; Pneumonia; Morbid obesity Interval history: Patient is seen today for: Acute hypoxemic respiratory failure; COVID-19 infec tion; Multifocal pneumonia; Morbid obesity; Hypothyroidism Seen and examined at bedside; 24hour events reviewed; nursing and respiratory care staff consulted; no adverse overnight events reported to me; resting peacefully in bed; remains on supplemental oxyegn at 3L NC; no N/V/F/C; denies chest pains or palpitations Objective Vital Signs - 12hr 05/07/20 05/07/20 05/07/20 05:44 10:00 11:38 Temperature 97.3 F L 98.2 F Pulse Rate 68 83 Respiratory 18 22 Rate Blood Pressure 121/65 118/71 O2 Sat by Pulse 100 93 93 Oximetry Constitutional: no acute distress, alert, other (Morbidly Obese.) Eyes: non-icteric ENT: oropharynx moist Neck: supple, no JVD Effort: mildly labored Ascultation: Bilateral: diminished breath sounds, rhonchi Cardiovascular: regular rate and rhythm Gastrointestinal: normoactive bowel sounds, soft, non-tender Integumentary: normal Extremities: no cyanosis, no edema Neurologic: normal mental status, non-focal exam, pupils equal and round, CN II- XII normal Psychiatric: mood appropriate, affect normal CBC and BMP: 05/05/20 00:35 05/03/20 04:45 ABG, PT/INR, D-dimer: ABG ABG pH 7.420 pH Units (7.350-7.450) 05/03/20 16:35 ABG pCO2 37.9 mm Hg 05/03/20 16:35 ABG pO2 72.1 mm Hg (80.0-90.0) L 05/03/20 16:35 ABG O2 Saturation 95.0 % (95.0-99.0) 05/03/20 16:35 PT/INR, D-dimer PT 14.2 Sec. (12.2-14.9) 05/03/20 04:45 INR 1.08 (0.87-1.13) 05/03/20 04:45 D-Dimer > 72689 ng/mlDDU (0-234) H 05/07/20 06:44 Abnormal lab findings: Abnormal Labs 05/01/20 05/01/20 05/01/20 22:50 22:50 22:50 WBC RBC 5.68 H Hgb 14.6 H Hct 45.6 H MCH 26 L Plt Count Lymph % (Auto) 10.6 L [place] % (Auto) 10.0 H Lymph # 0.9 L [place] # Seg Neutrophils % 79.1 H Seg Neutrophils # D-Dimer 835.72 H ABG pO2 Oxyhemoglobin Glucose 102 H POC Glucose AST 54 H ALT 93 H Lactate Dehydrogenase C-Reactive Protein Total Protein 8.7 H Albumin 3.4 L Urine WBC (Auto) Coronavirus (PCR) 05/01/20 05/02/20 05/02/20 22:50 00:54 13:55 WBC RBC Hgb Hct MCH Plt Count Lymph % (Auto) [place] % (Auto) Lymph # [place] # Seg Neutrophils % Seg Neutrophils # D-Dimer ABG pO2 117.3 H Oxyhemoglobin Glucose 104 H POC Glucose AST ALT Lactate Dehydrogenase 398 H C-Reactive Protein 6.70 H Total Protein Albumin Urine WBC (Auto) 8.0 H Coronavirus (PCR) 05/03/20 05/03/20 05/03/20 04:45 04:45 16:35 WBC 13.1 H RBC 5.32 H Hgb Hct MCH 26 L Plt Count Lymph % (Auto) 8.3 L [place] % (Auto) 8.1 H Lymph # 1.1 L [place] # 1.1 H Seg Neutrophils % 83.4 H Seg Neutrophils # 10.9 H D-Dimer ABG pO2 72.1 L Oxyhemoglobin 93.8 L Glucose 110 H POC Glucose AST ALT Lactate Dehydrogenase C-Reactive Protein Total Protein Albumin Urine WBC (Auto) Coronavirus (PCR) 05/05/20 05/05/20 05/05/20 00:35 05:05 05:05 WBC RBC 5.47 H Hgb Hct 44.3 H MCH 26 L Plt Count 124 L Lymph % (Auto) 9.8 L [place] % (Auto) 7.7 H Lymph # 0.9 L [place] # Seg Neutrophils % 82.2 H Seg Neutrophils # 7.9 H D-Dimer > 88641 H ABG pO2 Oxyhemoglobin Glucose POC Glucose AST ALT Lactate Dehydrogenase 377 H C-Reactive Protein 6.50 H Total Protein Albumin Urine WBC (Auto) Coronavirus (PCR) 05/05/20 05/06/20 05/07/20 Unknown 06:06 06:44 WBC RBC Hgb Hct MCH Plt Count Lymph % (Auto) [place] % (Auto) Lymph # [place] # Seg Neutrophils % Seg Neutrophils # D-Dimer > 54608 H ABG pO2 Oxyhemoglobin Glucose POC Glucose 265 H AST ALT Lactate Dehydrogenase C-Reactive Protein Total Protein Albumin Urine WBC (Auto) Coronavirus (PCR) Positive A 05/07/20 06:44 WBC RBC Hgb Hct MCH Plt Count Lymph % (Auto) [place] % (Auto) Lymph # [place] # Seg Neutrophils % Seg Neutrophils # D-Dimer ABG pO2 Oxyhemoglobin Glucose POC Glucose AST ALT Lactate Dehydrogenase 280 H C-Reactive Protein Total Protein Albumin Urine WBC (Auto) Coronavirus (PCR)
[2020-05-07] MEDS: ACETAMINOPHEN 325 MG TAB PO PRN (22:14)
[2020-05-08] MEDS: LEVOTHYROXINE 25 MCG TAB PO SCH (05:27)
[2020-05-08] MEDS: DEXAMETHASONE 2 MG TAB PO SCH (10:34)
[2020-05-08] MEDS: ENOXAPARIN 40 MG/0.4 ML INJ SUB-Q SCH ×2 (10:34→21:15)
--- NOTE | 2020-05-08 12:59 | Progress Note ---
Assessment and Plan Cultures: Blood culture 05/02/2020 pending A/P: 54-year-old female no known past medical history admitted with COVID-19 pneumonia. #Acute hypoxemic respiratory failure: Likely secondary to COVID-19 infection. Currently on 4 L nasal cannula #Severe COVID-19 pneumonia: Patient presented with a week of symptoms, chest x- ray with diffuse bilateral infiltrates, currently on high flow nasal cannula. Inflammatory markers normal. Recs: -Continue dexamethasone 6 mg IV/PO daily for 10 days -Obtain daily inflammatory markers - ferritin, Ddimer, CRP, LDH -prophylactic anticoagulation -Okay for discharge from infectious disease perspective when stable from a respiratory standpoint. Thank you for the consult, we will continue to follow. Richy Lagos MD [facility] ([facility]) M: [phone] O: [phone] F: [phone] Subjective Date of service: 05/08/20 Principal diagnosis: Ac. hypoxemic resp failure; COVID-19 infxn; Pneumonia; Morbid obesity Interval history: Afebrile, currently on 4 L nasal cannula Objective - Exam Narrative Exam: Physical exam deferred due to PPE conservation strategy. Please refer to primary team's note. - Constitutional Vitals: Vital Signs Temp Pulse Resp BP Pulse Ox 98.1 F 91 H 16 132/79 95 05/08/20 11:29 05/08/20 11:29 05/08/20 11:29 05/08/20 11:29 05/08/20 12:09 Temperature -Last 24 Hours Temperature 98.1 F Temperature 97.6 F Temperature 98.2 F Temperature 97.6 F - Labs CBC & Chem 7: 05/05/20 00:35 05/03/20 04:45
--- NOTE | 2020-05-08 13:19 | Progress Note ---
Assessment and Plan Acute hypoxemic respiratory failure on HFOT COVID infection (diagnosed COVID-19 approximately a week prior to admission) Multifocal pneumonia Morbid obesity Hypothyroidism - prn CXR's & ABG's at this point - wean supplemental oxygen for target O2 sats > 92% - awake proning per facility protocol - continue conservative volume management strategies as tolerated by hemodynamics and renal function - Bronchodilators with pulmonary hygiene per RT-MDR - Accuchecks with glycemic control per SSI for target blood glucose of < 180 mg/dL; avoid hypoglycemia - Avoid benzodiazepines, reduce the possibility of delirium - prn analgesia per pain score - Maintenance of sleep-wake cycle, avoid delirium - Avoid nephrotoxins, closely monitor renal function - Stress ulcer prophylaxis while on steroids - Mobility protocol, off loading and skin assessment for pressure ulcer prevention - Monitor hemodynamics closely - Supportive transfusions as indicated to keep HgB >7g/dL - Chronic home medications as clinically indicated, resume Levothyroxine - Continue to monitor closely COVID SPECIFIC INTERVENTIONS - Airborne, contact isolation for COVID per facility protocols - Lateral decubitus and awake proning, encouraged at the bedside - s/p systemic steroids- dexamethasone (completed 10 days of therapy) - Trend d-dimer,and other inflammatory markers per facility protocol - VTE prophyalxis (venous dopplers -ve for DVT) - Continue all supportive care - continue other care per attending / other consultants ... re-evaluate in am & prn Subjective Date of service: 05/08/20 Principal diagnosis: Ac. hypoxemic resp failure; COVID-19 infxn; Pneumonia; Morbid obesity Interval history: Patient is seen today for: Acute hypoxemic respiratory failure; COVID-19 infe ction; Multifocal pneumonia; Morbid obesity; Hypothyroidism Seen and examined at bedside; 24hour events reviewed; nursing and respiratory care staff consulted; no adverse overnight events reported to me; resting peacefully in bed; Objective Vital Signs - 12hr 05/08/20 05/08/20 05/08/20 04:56 11:29 12:09 Temperature 97.6 F 98.1 F Pulse Rate 65 91 H Respiratory 18 16 Rate Blood Pressure 135/74 Blood Pressure 132/79 [LEFT FOREARM] O2 Sat by Pulse 94 94 95 Oximetry Constitutional: no acute distress, alert, other (Morbidly Obese.) Eyes: non-icteric ENT: oropharynx moist Neck: supple, no JVD Effort: mildly labored Ascultation: Bilateral: diminished breath sounds, rhonchi Cardiovascular: regular rate and rhythm Gastrointestinal: normoactive bowel sounds, soft, non-tender Integumentary: normal Extremities: no cyanosis, no edema Neurologic: normal mental status, non-focal exam, pupils equal and round, CN II- XII normal Psychiatric: mood appropriate, affect normal CBC and BMP: 05/05/20 00:35 05/03/20 04:45 ABG, PT/INR, D-dimer: ABG ABG pH 7.420 pH Units (7.350-7.450) 05/03/20 16:35 ABG pCO2 37.9 mm Hg 05/03/20 16:35 ABG pO2 72.1 mm Hg (80.0-90.0) L 05/03/20 16:35 ABG O2 Saturation 95.0 % (95.0-99.0) 05/03/20 16:35 PT/INR, D-dimer PT 14.2 Sec. (12.2-14.9) 05/03/20 04:45 INR 1.08 (0.87-1.13) 05/03/20 04:45 D-Dimer > 10521 ng/mlDDU (0-234) H 05/07/20 06:44 Abnormal lab findings: Abnormal Labs 05/01/20 05/01/20 05/01/20 22:50 22:50 22:50 WBC RBC 5.68 H Hgb 14.6 H Hct 45.6 H MCH 26 L Plt Count Lymph % (Auto) 10.6 L [place] % (Auto) 10.0 H Lymph # 0.9 L [place] # Seg Neutrophils % 79.1 H Seg Neutrophils # D-Dimer 835.72 H ABG pO2 Oxyhemoglobin Glucose 102 H POC Glucose AST 54 H ALT 93 H Lactate Dehydrogenase C-Reactive Protein Total Protein 8.7 H Albumin 3.4 L Urine WBC (Auto) Coronavirus (PCR) 05/01/20 05/02/20 05/02/20 22:50 00:54 13:55 WBC RBC Hgb Hct MCH Plt Count Lymph % (Auto) [place] % (Auto) Lymph # [place] # Seg Neutrophils % Seg Neutrophils # D-Dimer ABG pO2 117.3 H Oxyhemoglobin Glucose 104 H POC Glucose AST ALT Lactate Dehydrogenase 398 H C-Reactive Protein 6.70 H Total Protein Albumin Urine WBC (Auto) 8.0 H Coronavirus (PCR) 05/03/20 05/03/20 05/03/20 04:45 04:45 16:35 WBC 13.1 H RBC 5.32 H Hgb Hct MCH 26 L Plt Count Lymph % (Auto) 8.3 L [place] % (Auto) 8.1 H Lymph # 1.1 L [place] # 1.1 H Seg Neutrophils % 83.4 H Seg Neutrophils # 10.9 H D-Dimer ABG pO2 72.1 L Oxyhemoglobin 93.8 L Glucose 110 H POC Glucose AST ALT Lactate Dehydrogenase C-Reactive Protein Total Protein Albumin Urine WBC (Auto) Coronavirus (PCR) 05/05/20 05/05/20 05/05/20 00:35 05:05 05:05 WBC RBC 5.47 H Hgb Hct 44.3 H MCH 26 L Plt Count 124 L Lymph % (Auto) 9.8 L [place] % (Auto) 7.7 H Lymph # 0.9 L [place] # Seg Neutrophils % 82.2 H Seg Neutrophils # 7.9 H D-Dimer > 65240 H ABG pO2 Oxyhemoglobin Glucose POC Glucose AST ALT Lactate Dehydrogenase 377 H C-Reactive Protein 6.50 H Total Protein Albumin Urine WBC (Auto) Coronavirus (PCR) 05/05/20 05/06/20 05/07/20 Unknown 06:06 06:44 WBC RBC Hgb Hct MCH Plt Count Lymph % (Auto) [place] % (Auto) Lymph # [place] # Seg Neutrophils % Seg Neutrophils # D-Dimer > 51145 H ABG pO2 Oxyhemoglobin Glucose POC Glucose 265 H AST ALT Lactate Dehydrogenase C-Reactive Protein Total Protein Albumin Urine WBC (Auto) Coronavirus (PCR) Positive A 05/07/20 06:44 WBC RBC Hgb Hct MCH Plt Count Lymph % (Auto) [place] % (Auto) Lymph # [place] # Seg Neutrophils % Seg Neutrophils # D-Dimer ABG pO2 Oxyhemoglobin Glucose POC Glucose AST ALT Lactate Dehydrogenase 280 H C-Reactive Protein Total Protein Albumin Urine WBC (Auto) Coronavirus (PCR)
--- NOTE | 2020-05-08 17:58 | Progress Note ---
Assessment and Plan Patient is improving every day ambulating minimal oxygen (1) Pneumonia Current Visit: Yes Status: Acute Qualifiers: Pneumonia type: due to unspecified organism Laterality: bilateral Lung location: unspecified part of lung Qualified Code(s): J18.9 - Pneumonia, u nspecified organism Plan to address problem: IV antibiotics discontinued (2) Respiratory failure Current Visit: Yes Status: Acute Qualifiers: Chronicity: acute Respiratory failure complication: hypoxia Qualified Code(s): J96.01 - Acute respiratory failure with hypoxia Plan to address problem: Patient on high flow oxygen Positive for coronavirus Proning position (3) Suspected COVID-19 virus infection Current Visit: Yes Status: Acute Plan to address problem: On high flow oxygenIV Decadron positive for coronavirus (4) DVT prophylaxis Current Visit: Yes Status: Acute Plan to address problem: Patient placed on subcutaneous Lovenox. (5) Full code status Current Visit: Yes Status: Acute Subjective Date of service: 05/08/20 Principal diagnosis: Ac. hypoxemic resp failure; COVID-19 infxn; Pneumonia; Morbid obesity Interval history: 54-year-old female no known past medical history admitted to the hospital complaining of shortness of breath. She also reports a chest discomfort at the same time she was initially diagnosed COVID-19 approximately a week prior to admission, but her symptoms only began the day of admission to hospital. She also reports associated fever and cough. Found to be hypoxic in the emergency room Procalcitonin is normal. Currently receiving 6 liters NC O2 Patient doing better Transferred from ICU to regular medical floor 05/05/2020 Improving Objective - Constitutional Vitals: Vital Signs - 12hr 05/08/20 05/08/20 05/08/20 10:00 10:18 11:29 Temperature 98.1 F Pulse Rate 91 H Respiratory 18 16 Rate Blood Pressure Blood Pressure 132/79 [LEFT FOREARM] O2 Sat by Pulse 89 94 Oximetry 05/08/20 05/08/20 12:09 16:23 Temperature 98.3 F Pulse Rate 75 Respiratory 18 Rate Blood Pressure 128/83 Blood Pressure [LEFT FOREARM] O2 Sat by Pulse 95 95 Oximetry General appearance: Present: mild distress, well-nourished - EENT Eyes: PERRL, EOM intact ENT: hearing intact, clear oral mucosa Ears: bilateral: normal - Neck Neck: supple, normal ROM - Respiratory Respiratory effort: normal Respiratory: bilateral: CTA - Breasts Breasts: normal - Cardiovascular Heart rate: 88 Rhythm: regular Heart Sounds: Present: S1 & S2. Absent: gallop, rub Extremities: no ischemia, pulses intact, No edema, normal color, Full ROM - Gastrointestinal General gastrointestinal: Present: soft, non-tender, non-distended, normal bowel sounds - Genitourinary Female genitourinary: normal - Integumentary Integumentary: clear, warm, dry - Musculoskeletal Musculoskeletal: 1, strength equal bilaterally - Neurologic Neurologic: moves all extremities - Psychiatric Psychiatric: memory intact, appropriate mood/affect, intact judgment & insight - Labs CBC & Chem 7: 05/05/20 00:35 05/03/20 04:45 HEART Score - HEART Score Troponin: Troponin T < 0.010 ng/mL (0.00-0.029) 05/01/20 22:50
[2020-05-09] MEDS: LEVOTHYROXINE 25 MCG TAB PO SCH (05:31)
[2020-05-09] MEDS: ENOXAPARIN 40 MG/0.4 ML INJ SUB-Q SCH ×2 (10:12→22:34)
[2020-05-09] MEDS: DEXAMETHASONE 2 MG TAB PO SCH (10:12)
--- NOTE | 2020-05-09 11:51 | Progress Note ---
Assessment and Plan Cultures: Blood culture 05/02/2020 pending A/P: 54-year-old female no known past medical history admitted with COVID-19 pneumonia. #Acute hypoxemic respiratory failure: Likely secondary to COVID-19 infection. Currently on 2 L nasal cannula #Severe COVID-19 pneumonia: Patient presented with a week of symptoms, chest x- ray with diffuse bilateral infiltrates, currently on high flow nasal cannula. Inflammatory markers normal. Recs: -Continue dexamethasone 6 mg IV/PO daily for 10 days -Obtain daily inflammatory markers - ferritin, Ddimer, CRP, LDH -prophylactic anticoagulation -Given vastly elevated d-dimer and risk factors for clot, would anticoagulate for 4 to 6 weeks post discharge. -Okay for discharge from infectious disease perspective when stable from a respiratory standpoint. Dr. Aguayo taking over Monday. Thank you for the consult, we will continue to follow. Richy Lagos MD [facility] ([facility]) M: [phone] O: [phone] F: [phone] Subjective Date of service: 05/09/20 Principal diagnosis: Ac. hypoxemic resp failure; COVID-19 infxn; Pneumonia; Morbid obesity Interval history: Afebrile, currently on 2 L nasal cannula. Objective - Exam Narrative Exam: Physical exam deferred due to PPE conservation strategy. Please refer to primary team's note. - Constitutional Vitals: Vital Signs Temp Pulse Resp BP Pulse Ox 97.6 F 66 20 136/74 94 05/09/20 05:19 05/09/20 05:19 05/09/20 05:19 05/09/20 05:19 05/09/20 09:19 Temperature -Last 24 Hours Temperature 97.6 F Temperature 98.2 F Temperature 98.3 F - Labs CBC & Chem 7: 05/05/20 00:35 05/03/20 04:45
--- NOTE | 2020-05-09 13:30 | Progress Note ---
Assessment and Plan Acute hypoxemic respiratory failure on HFOT COVID infection-diagnosed COVID-19 approximately a week prior to admission, Multifocal pneumonia Morbid obesity Hypothyroidism - Continue to wean supplemental oxygen for target O2 sats > 90% -Fluid conservative measures as tolerated by hemodynamics and renal function - Bronchodilators with pulmonary hygiene per RT-MDR - Accuchecks with glycemic control per SSI - Maintenance of sleep-wake cycle, avoid delirium -Avoid nephrotoxins, closely monitor renal function -Stress ulcer prophylaxis while on steroids, with acute hypoxic resp failure -Supportive transfusions as indicated to keep HgB >7g/dL -Chronic home medications as clinically indicated, continue Levothyroxine -Evalaute for home oxygen, get room air ABG and do walk test in her room. If she desaturates , arrange for home oxygen -Discharge planning, out patient pulmonary follow up COVID SPECIFIC INTERVENTIONS -Airborne, contact isolation for COVID per facility protocols -Lateral decubitus and awake proning, -IV steroids- dexamethasone to complete course -Trend d-dimer,and other inflammatory markers per facility protocol -Continue all supportive care CONDITION: FAIR PROGNOSIS: FAIR CODE STATUS: FULL CODE Subjective Date of service: 05/09/20 Principal diagnosis: Ac. hypoxemic resp failure; COVID-19 infxn; Pneumonia; Morbid obesity Interval history: Patient is seen today for: Acute hypoxemic respiratory failure; COVID-19 infection; Multifocal pneumonia; Morbid obesity; Hypothyroidism Seen and examined at bedside; 24hour events reviewed; nursing and respiratory care staff consulted; no adverse overnight events reported to me; sitting up in chair on 3L on supplemetnal oxygen, no fevers, no chills, no nausea or vomiting. Some shortness of breath on ambulation to the bathroom Objective Vital Signs - 12hr 05/09/20 05/09/20 05/09/20 05:19 09:19 11:21 Temperature 97.6 F 98.9 F Pulse Rate 66 86 Respiratory 20 18 Rate Blood Pressure 136/74 118/71 O2 Sat by Pulse 96 94 94 Oximetry Constitutional: no acute distress, alert, other (Morbidly Obese.) Eyes: non-icteric ENT: oropharynx moist Neck: supple, no JVD Effort: normal, mildly labored Ascultation: Bilateral: diminished breath sounds, rhonchi Cardiovascular: regular rate and rhythm, other (S1,S2) Gastrointestinal: normoactive bowel sounds, soft, non-tender Integumentary: normal Extremities: no cyanosis, no edema Neurologic: normal mental status, non-focal exam, pupils equal and round, CN II-XII normal, motor strength normal and Psychiatric: mood appropriate, affect normal CBC and BMP: 05/05/20 00:35 05/03/20 04:45 ABG, PT/INR, D-dimer: ABG ABG pH 7.420 pH Units (7.350-7.450) 05/03/20 16:35 ABG pCO2 37.9 mm Hg 05/03/20 16:35 ABG pO2 72.1 mm Hg (80.0-90.0) L 05/03/20 16:35 ABG O2 Saturation 95.0 % (95.0-99.0) 05/03/20 16:35 PT/INR, D-dimer PT 14.2 Sec. (12.2-14.9) 05/03/20 04:45 INR 1.08 (0.87-1.13) 05/03/20 04:45 D-Dimer > 66172 ng/mlDDU (0-234) H 05/07/20 06:44 Abnormal lab findings: Abnormal Labs 05/01/20 05/01/20 05/01/20 22:50 22:50 22:50 WBC RBC 5.68 H Hgb 14.6 H Hct 45.6 H MCH 26 L Plt Count Lymph % (Auto) 10.6 L [place] % (Auto) 10.0 H Lymph # 0.9 L [place] # Seg Neutrophils % 79.1 H Seg Neutrophils # D-Dimer 835.72 H ABG pO2 Oxyhemoglobin Glucose 102 H POC Glucose AST 54 H ALT 93 H Lactate Dehydrogenase C-Reactive Protein Total Protein 8.7 H Albumin 3.4 L Urine WBC (Auto) Coronavirus (PCR) 05/01/20 05/02/20 05/02/20 22:50 00:54 13:55 WBC RBC Hgb Hct MCH Plt Count Lymph % (Auto) [place] % (Auto) Lymph # [place] # Seg Neutrophils % Seg Neutrophils # D-Dimer ABG pO2 117.3 H Oxyhemoglobin Glucose 104 H POC Glucose AST ALT Lactate Dehydrogenase 398 H C-Reactive Protein 6.70 H Total Protein Albumin Urine WBC (Auto) 8.0 H Coronavirus (PCR) 05/03/20 05/03/20 05/03/20 04:45 04:45 16:35 WBC 13.1 H RBC 5.32 H Hgb Hct MCH 26 L Plt Count Lymph % (Auto) 8.3 L [place] % (Auto) 8.1 H Lymph # 1.1 L [place] # 1.1 H Seg Neutrophils % 83.4 H Seg Neutrophils # 10.9 H D-Dimer ABG pO2 72.1 L Oxyhemoglobin 93.8 L Glucose 110 H POC Glucose AST ALT Lactate Dehydrogenase C-Reactive Protein Total Protein Albumin Urine WBC (Auto) Coronavirus (PCR) 05/05/20 05/05/20 05/05/20 00:35 05:05 05:05 WBC RBC 5.47 H Hgb Hct 44.3 H MCH 26 L Plt Count 124 L Lymph % (Auto) 9.8 L [place] % (Auto) 7.7 H Lymph # 0.9 L [place] # Seg Neutrophils % 82.2 H Seg Neutrophils # 7.9 H D-Dimer > 22376 H ABG pO2 Oxyhemoglobin Glucose POC Glucose AST ALT Lactate Dehydrogenase 377 H C-Reactive Protein 6.50 H Total Protein Albumin Urine WBC (Auto) Coronavirus (PCR) 05/05/20 05/06/20 05/07/20 Unknown 06:06 06:44 WBC RBC Hgb Hct MCH Plt Count Lymph % (Auto) [place] % (Auto) Lymph # [place] # Seg Neutrophils % Seg Neutrophils # D-Dimer > 08636 H ABG pO2 Oxyhemoglobin Glucose POC Glucose 265 H AST ALT Lactate Dehydrogenase C-Reactive Protein Total Protein Albumin Urine WBC (Auto) Coronavirus (PCR) Positive A 05/07/20 06:44 WBC RBC Hgb Hct MCH Plt Count Lymph % (Auto) [place] % (Auto) Lymph # [place] # Seg Neutrophils % Seg Neutrophils # D-Dimer ABG pO2 Oxyhemoglobin Glucose POC Glucose AST ALT Lactate Dehydrogenase 280 H C-Reactive Protein Total Protein Albumin Urine WBC (Auto) Coronavirus (PCR) Allied health notes reviewed: nursing
[2020-05-09] MEDS: ACETAMINOPHEN 325 MG TAB PO PRN (22:34)
[2020-05-10] MEDS: LEVOTHYROXINE 25 MCG TAB PO SCH (05:38)
[2020-05-10] MEDS: DEXAMETHASONE 2 MG TAB PO SCH (10:15)
[2020-05-10] MEDS: ENOXAPARIN 40 MG/0.4 ML INJ SUB-Q SCH ×2 (10:15→21:51)
--- NOTE | 2020-05-10 11:34 | Progress Note ---
Assessment and Plan Acute hypoxemic respiratory failure on HFOT COVID infection-diagnosed COVID-19 approximately a week prior to admission, Multifocal pneumonia Morbid obesity Hypothyroidism - Continue to wean supplemental oxygen for target O2 sats > 90% -Fluid conservative measures as tolerated by hemodynamics and renal function - Bronchodilators with pulmonary hygiene per RT-MDR - Accuchecks with glycemic control per SSI - Maintenance of sleep-wake cycle, avoid delirium -Avoid nephrotoxins, closely monitor renal function -Stress ulcer prophylaxis while on steroids, with acute hypoxic resp failure -Supportive transfusions as indicated to keep HgB >7g/dL -Chronic home medications as clinically indicated, continue Levothyroxine -Evalaute for home oxygen, get room air ABG and do walk test in her room. If she desaturates , arrange for home oxygen -Discharge planning, out patient pulmonary follow up COVID SPECIFIC INTERVENTIONS -Airborne, contact isolation for COVID per facility protocols -Lateral decubitus and awake proning, -IV steroids- dexamethasone to complete course -Trend d-dimer,and other inflammatory markers per facility protocol -Continue all supportive care CONDITION: FAIR PROGNOSIS: FAIR CODE STATUS: FULL CODE Subjective Date of service: 05/10/20 Principal diagnosis: Ac. hypoxemic resp failure; COVID-19 infxn; Pneumonia; Morbid obesity Interval history: Patient is seen today for: Acute hypoxemic respiratory failure; COVID-19 infection; Multifocal pneumonia; Morbid obesity; Hypothyroidism Seen and examined at bedside; 24hour events reviewed; nursing and respiratory care staff consulted; no adverse overnight events reported to me; sitting up in chair on 3L on supplemetnal oxygen, no fevers, no chills, no nausea or vomiting. Some shortness of breath on ambulation to the bathroom Objective Vital Signs - 12hr 05/10/20 05/10/20 05/10/20 05:18 05:38 08:35 Temperature 97.5 F L Pulse Rate 62 66 Respiratory 18 18 Rate Blood Pressure 128/76 O2 Sat by Pulse 87 95 94 Oximetry 05/10/20 11:12 Temperature 97.8 F Pulse Rate 98 H Respiratory 18 Rate Blood Pressure 131/80 O2 Sat by Pulse 90 Oximetry Constitutional: no acute distress, alert, other (Morbidly Obese.) Eyes: non-icteric ENT: oropharynx moist Neck: supple, no JVD Effort: normal, mildly labored Ascultation: Bilateral: diminished breath sounds, rhonchi Cardiovascular: regular rate and rhythm, other (S1,S2) Gastrointestinal: normoactive bowel sounds, soft, non-tender Integumentary: normal Extremities: no cyanosis, no edema Neurologic: normal mental status, non-focal exam, pupils equal and round, CN II- XII normal, motor strength normal and Psychiatric: mood appropriate, affect normal CBC and BMP: 05/05/20 00:35 05/03/20 04:45 ABG, PT/INR, D-dimer: ABG ABG pH 7.420 pH Units (7.350-7.450) 05/03/20 16:35 ABG pCO2 37.9 mm Hg 05/03/20 16:35 ABG pO2 72.1 mm Hg (80.0-90.0) L 05/03/20 16:35 ABG O2 Saturation 95.0 % (95.0-99.0) 05/03/20 16:35 PT/INR, D-dimer PT 14.2 Sec. (12.2-14.9) 05/03/20 04:45 INR 1.08 (0.87-1.13) 05/03/20 04:45 D-Dimer > 56582 ng/mlDDU (0-234) H 05/07/20 06:44 Abnormal lab findings: Abnormal Labs 05/01/20 05/01/20 05/01/20 22:50 22:50 22:50 WBC RBC 5.68 H Hgb 14.6 H Hct 45.6 H MCH 26 L Plt Count Lymph % (Auto) 10.6 L [place] % (Auto) 10.0 H Lymph # 0.9 L [place] # Seg Neutrophils % 79.1 H Seg Neutrophils # D-Dimer 835.72 H ABG pO2 Oxyhemoglobin Glucose 102 H POC Glucose AST 54 H ALT 93 H Lactate Dehydrogenase C-Reactive Protein Total Protein 8.7 H Albumin 3.4 L Urine WBC (Auto) Coronavirus (PCR) 05/01/20 05/02/20 05/02/20 22:50 00:54 13:55 WBC RBC Hgb Hct MCH Plt Count Lymph % (Auto) [place] % (Auto) Lymph # [place] # Seg Neutrophils % Seg Neutrophils # D-Dimer ABG pO2 117.3 H Oxyhemoglobin Glucose 104 H POC Glucose AST ALT Lactate Dehydrogenase 398 H C-Reactive Protein 6.70 H Total Protein Albumin Urine WBC (Auto) 8.0 H Coronavirus (PCR) 05/03/20 05/03/20 05/03/20 04:45 04:45 16:35 WBC 13.1 H RBC 5.32 H Hgb Hct MCH 26 L Plt Count Lymph % (Auto) 8.3 L [place] % (Auto) 8.1 H Lymph # 1.1 L [place] # 1.1 H Seg Neutrophils % 83.4 H Seg Neutrophils # 10.9 H D-Dimer ABG pO2 72.1 L Oxyhemoglobin 93.8 L Glucose 110 H POC Glucose AST ALT Lactate Dehydrogenase C-Reactive Protein Total Protein Albumin Urine WBC (Auto) Coronavirus (PCR) 05/05/20 05/05/20 05/05/20 00:35 05:05 05:05 WBC RBC 5.47 H Hgb Hct 44.3 H MCH 26 L Plt Count 124 L Lymph % (Auto) 9.8 L [place] % (Auto) 7.7 H Lymph # 0.9 L [place] # Seg Neutrophils % 82.2 H Seg Neutrophils # 7.9 H D-Dimer > 22003 H ABG pO2 Oxyhemoglobin Glucose POC Glucose AST ALT Lactate Dehydrogenase 377 H C-Reactive Protein 6.50 H Total Protein Albumin Urine WBC (Auto) Coronavirus (PCR) 05/05/20 05/06/20 05/07/20 Unknown 06:06 06:44 WBC RBC Hgb Hct MCH Plt Count Lymph % (Auto) [place] % (Auto) Lymph # [place] # Seg Neutrophils % Seg Neutrophils # D-Dimer > 59849 H ABG pO2 Oxyhemoglobin Glucose POC Glucose 265 H AST ALT Lactate Dehydrogenase C-Reactive Protein Total Protein Albumin Urine WBC (Auto) Coronavirus (PCR) Positive A 05/07/20 06:44 WBC RBC Hgb Hct MCH Plt Count Lymph % (Auto) [place] % (Auto) Lymph # [place] # Seg Neutrophils % Seg Neutrophils # D-Dimer ABG pO2 Oxyhemoglobin Glucose POC Glucose AST ALT Lactate Dehydrogenase 280 H C-Reactive Protein Total Protein Albumin Urine WBC (Auto) Coronavirus (PCR) Allied health notes reviewed: nursing
--- NOTE | 2020-05-10 20:15 | Progress Note ---
Assessment and Plan (1) Pneumonia Current Visit: Yes Status: Acute Qualifiers: Pneumonia type: due to unspecified organism Laterality: bilateral Lung location: unspecified part of lung Qualified Code(s): J18.9 - Pneumonia, unspecified organism Plan to address problem: IV antibiotics discontinued (2) Respiratory failure Current Visit: Yes Status: Acute Qualifiers: Chronicity: acute Respiratory failure complication: hypoxia Qualified Code(s): J96.01 - Acute respiratory failure with hypoxia Plan to address problem: Patient is still driving hypoxic to 88 on ambulation. O2 sats are normal with 2 L nasal cannula oxygen. Patient needs home oxygen. Patient is otherwise stable for discharge. (3) Suspected COVID-19 virus infection Current Visit: Yes Status: Acute Plan to address problem: Patient finished IDecadron course (4) DVT prophylaxis Current Visit: Yes Status: Acute Plan to address problem: Patient placed on subcutaneous Lovenox. (5) Full code status Current Visit: Yes Status: Acute 6)Discharge planning issues Patient on 2 L nasal cannula oxygen Patient is stable at 2 L nasal cannula oxygen Patient's O2 sats dropped to 88% on ambulation on room air Patient needs home oxygen at discharge Subjective Date of service: 05/10/20 Principal diagnosis: Ac. hypoxemic resp failure; COVID-19 infxn; Pneumonia; Morbid obesity Interval history: 84-year-old female with no significant past medical history presenting to the emergency room today complaining of shortness of breath. She also had associated chest discomfort. She was diagnosed with COVID-19 about a week ago but she started having difficulty breathing, having cough and fever today. He had some antibiotics, primary care physician-name unknown. He denies any nausea vomiting, no diarrhea, no abdominal pain, no hematuria or dysuria, no headache or dizziness. Denies any generalized body aches and pain. Patient was brought in by EMS and was found to be about 76% saturation on room air was subsequently placed on high flow oxygen. Chest x-ray reveals bilateral pneumonia. He has been placed on empiric IV antibiotics and IV steroid patient placed on isolation precautions for COVID-19. Objective - Constitutional Vitals: Vital Signs - 12hr 05/10/20 05/10/20 05/10/20 08:35 11:12 16:16 Temperature 97.8 F 98.4 F Pulse Rate 98 H 89 Respiratory 18 20 Rate Blood Pressure 131/80 124/68 O2 Sat by Pulse 94 90 94 Oximetry General appearance: Present: no acute distress, well-nourished - EENT Eyes: PERRL, EOM intact ENT: hearing intact, clear oral mucosa Ears: bilateral: normal - Neck Neck: supple, normal ROM - Respiratory Respiratory effort: normal Respiratory: bilateral: CTA - Breasts Breasts: normal - Cardiovascular Heart rate: 78 Rhythm: regular Heart Sounds: Present: S1 & S2. Absent: gallop, rub Extremities: pulses intact, No edema, normal color, Full ROM - Gastrointestinal General gastrointestinal: Present: soft, non-tender, non-distended, normal bowel sounds - Genitourinary Female genitourinary: normal - Integumentary Integumentary: clear, warm, dry - Musculoskeletal Musculoskeletal: 1, strength equal bilaterally - Neurologic Neurologic: moves all extremities - Psychiatric Psychiatric: memory intact, appropriate mood/affect, intact judgment & insight - Labs CBC & Chem 7: 05/05/20 00:35 05/03/20 04:45 HEART Score - HEART Score Troponin: Troponin T < 0.010 ng/mL (0.00-0.029) 05/01/20 22:50
[2020-05-10] MEDS: ACETAMINOPHEN 325 MG TAB PO PRN (21:57)
[2020-05-11] MEDS: LEVOTHYROXINE 25 MCG TAB PO SCH (05:48)
[2020-05-11] MEDS: DEXAMETHASONE 2 MG TAB PO SCH (09:12)
[2020-05-11] MEDS: ENOXAPARIN 40 MG/0.4 ML INJ SUB-Q SCH ×2 (09:12→21:33)
--- NOTE | 2020-05-11 12:16 | Progress Note ---
Assessment and Plan Patient alert, awake. Patient is on 1 litre O2. O2 saturation running 93%. Patient says breathing better.Patient says walking in the room. Patient afebrile, No leukocytosis. Chest x-ray reveals bilateral pneumonia. He was placed on empiric IV antibiotics and IV steroid patient placed on isolation precautions for COVID-19. Patient was on ceftrioxone, Zithromax and dexamethasone and S/C Lovenox. Patient presently on Dexamethasone and S/C Lovenox. - Patient Problems (1) COVID-19 Current Visit: Yes Status: Acute Plan to address problem: Patient is on dexamethasone and S/C Lovenox. Antibiotics as per infectious diseases. (2) Pneumonia Current Visit: Yes Status: Acute Qualifiers: Pneumonia type: due to unspecified organism Laterality: bilateral Lung location: unspecified part of lung Qualified Code(s): J18.9 - Pneumonia, unspecified organism Plan to address problem: Patient was on ceftrioxone, Zithromax. Antibiotics stopped. Management as per infectious diseases. (3) Respiratory failure Current Visit: Yes Status: Acute Qualifiers: Chronicity: acute Respiratory failure complication: hypoxia Qualified Code(s): J96.01 - Acute respiratory failure with hypoxia Plan to address problem: Patient is on 1 litres O2. O2 saturation 93%. (4) Chest pain Current Visit: Yes Status: Acute Qualifiers: Chest pain type: unspecified Qualified Code(s): R07.9 - Chest pain, unspecified Plan to address problem: Recommend to consult cardiology. (5) Fever Current Visit: Yes Status: Acute Qualifiers: Fever type: unspecified Qualified Code(s): R50.9 - Fever, unspecified Plan to address problem: Patient afebrile to day. Subjective Date of service: 05/11/20 Principal diagnosis: Ac. hypoxemic resp failure; COVID-19 infxn; Pneumonia; Morbid obesity Interval history: Patient alert, awake. Patient is on 1 litre O2. O2 saturation running 93%. Patient says breathing better.Patient says walking in the room. Patient afebrile, No leukocytosis. Chest x-ray reveals bilateral pneumonia. He was placed on empiric IV antibiotics and IV steroid patient placed on isolation precautions for COVID-19. Patient was on ceftrioxone, Zithromax and dexamethasone and S/C Lovenox. Patient presently on Dexamethasone and S/C Lovenox. Objective Vital Signs - 12hr 05/11/20 05/11/20 04:21 08:46 Temperature 97.3 F L Pulse Rate 65 Respiratory 18 Rate Blood Pressure 131/71 O2 Sat by Pulse 96 92 Oximetry Constitutional: no acute distress, alert, other (Morbidly Obese.) Eyes: non-icteric ENT: oropharynx moist Neck: supple, no JVD Effort: normal, mildly labored Ascultation: Bilateral: diminished breath sounds, rhonchi Cardiovascular: regular rate and rhythm, other (S1,S2) Gastrointestinal: normoactive bowel sounds, soft, non-tender Integumentary: normal Extremities: no cyanosis, no edema Neurologic: normal mental status, non-focal exam, pupils equal and round, CN II- XII normal, motor strength normal and Psychiatric: mood appropriate, affect normal CBC and BMP: 05/05/20 00:35 05/03/20 04:45 ABG, PT/INR, D-dimer: ABG ABG pH 7.420 pH Units (7.350-7.450) 05/03/20 16:35 ABG pCO2 37.9 mm Hg 05/03/20 16:35 ABG pO2 72.1 mm Hg (80.0-90.0) L 05/03/20 16:35 ABG O2 Saturation 95.0 % (95.0-99.0) 05/03/20 16:35 PT/INR, D-dimer PT 14.2 Sec. (12.2-14.9) 05/03/20 04:45 INR 1.08 (0.87-1.13) 05/03/20 04:45 D-Dimer > 29136 ng/mlDDU (0-234) H 05/07/20 06:44 Abnormal lab findings: Abnormal Labs 05/01/20 05/01/20 05/01/20 22:50 22:50 22:50 WBC RBC 5.68 H Hgb 14.6 H Hct 45.6 H MCH 26 L Plt Count Lymph % (Auto) 10.6 L [place] % (Auto) 10.0 H Lymph # 0.9 L [place] # Seg Neutrophils % 79.1 H Seg Neutrophils # D-Dimer 835.72 H ABG pO2 Oxyhemoglobin Glucose 102 H POC Glucose AST 54 H ALT 93 H Lactate Dehydrogenase C-Reactive Protein Total Protein 8.7 H Albumin 3.4 L Urine WBC (Auto) Coronavirus (PCR) 05/01/20 05/02/20 05/02/20 22:50 00:54 13:55 WBC RBC Hgb Hct MCH Plt Count Lymph % (Auto) [place] % (Auto) Lymph # [place] # Seg Neutrophils % Seg Neutrophils # D-Dimer ABG pO2 117.3 H Oxyhemoglobin Glucose 104 H POC Glucose AST ALT Lactate Dehydrogenase 398 H C-Reactive Protein 6.70 H Total Protein Albumin Urine WBC (Auto) 8.0 H Coronavirus (PCR) 05/03/20 05/03/20 05/03/20 04:45 04:45 16:35 WBC 13.1 H RBC 5.32 H Hgb Hct MCH 26 L Plt Count Lymph % (Auto) 8.3 L [place] % (Auto) 8.1 H Lymph # 1.1 L [place] # 1.1 H Seg Neutrophils % 83.4 H Seg Neutrophils # 10.9 H D-Dimer ABG pO2 72.1 L Oxyhemoglobin 93.8 L Glucose 110 H POC Glucose AST ALT Lactate Dehydrogenase C-Reactive Protein Total Protein Albumin Urine WBC (Auto) Coronavirus (PCR) 05/05/20 05/05/20 05/05/20 00:35 05:05 05:05 WBC RBC 5.47 H Hgb Hct 44.3 H MCH 26 L Plt Count 124 L Lymph % (Auto) 9.8 L [place] % (Auto) 7.7 H Lymph # 0.9 L [place] # Seg Neutrophils % 82.2 H Seg Neutrophils # 7.9 H D-Dimer > 96878 H ABG pO2 Oxyhemoglobin Glucose POC Glucose AST ALT Lactate Dehydrogenase 377 H C-Reactive Protein 6.50 H Total Protein Albumin Urine WBC (Auto) Coronavirus (PCR) 05/05/20 05/06/20 05/07/20 Unknown 06:06 06:44 WBC RBC Hgb Hct MCH Plt Count Lymph % (Auto) [place] % (Auto) Lymph # [place] # Seg Neutrophils % Seg Neutrophils # D-Dimer > 66148 H ABG pO2 Oxyhemoglobin Glucose POC Glucose 265 H AST ALT Lactate Dehydrogenase C-Reactive Protein Total Protein Albumin Urine WBC (Auto) Coronavirus (PCR) Positive A 05/07/20 06:44 WBC RBC Hgb Hct MCH Plt Count Lymph % (Auto) [place] % (Auto) Lymph # [place] # Seg Neutrophils % Seg Neutrophils # D-Dimer ABG pO2 Oxyhemoglobin Glucose POC Glucose AST ALT Lactate Dehydrogenase 280 H C-Reactive Protein Total Protein Albumin Urine WBC (Auto) Coronavirus (PCR) Allied health notes reviewed: nursing
--- NOTE | 2020-05-11 12:30 | Progress Note ---
Assessment and Plan Cultures: Blood culture 05/02/2020 no growth A/P: 54-year-old female no known past medical history admitted with COVID-19 pneumonia. #Acute hypoxemic respiratory failure: Likely secondary to COVID-19 infection. Currently on 1 L nasal cannula sat 93% #Severe COVID-19 pneumonia: Patient presented with a week of symptoms, chest x- ray with diffuse bilateral infiltrates, currently on high flow nasal cannula. Inflammatory markers ferrtin-normal, LDH/CRP improving, ddimer very high >10,000. Venous US no DVT. #Morbid obesity Recs: -check ambulating O2 sats -Completed dexamethasone 10 days -continue anticoagulation 4-6 weeks post discharge will sign off call us w questions Romi Aguayo MD [facility] ([facility]) Subjective Date of service: 05/11/20 Principal diagnosis: Ac. hypoxemic resp failure; COVID-19 infxn; Pneumonia; Morbid obesity Interval history: On 1L NC no fever Objective - Exam Narrative Exam: Physical Exam: reviewed ED and hospitalist notes, limited due to conservation of PPE General appearance: limited due to conservation of PPE Eyes: limited due to conservation of PPE HENT: Atraumatic; limited due to conservation of PPE Lungs: limited due to conservation of PPE CV: limited due to conservation of PPE Abdomen: limited due to conservation of PPE Extremities: limited due to conservation of PPE Skin: limited due to conservation of PPE Psych: limited due to conservation of PPE Neuro: limited due to conservation of PPE - Constitutional Vitals: Vital Signs Temp Pulse Resp BP Pulse Ox 98.9 F 89 20 137/85 93 05/11/20 12:11 05/11/20 12:11 05/11/20 12:11 05/11/20 12:11 05/11/20 12:11 Temperature -Last 24 Hours Temperature 98.9 F Temperature 97.3 F Temperature 97.8 F Temperature 98.4 F - Labs CBC & Chem 7: 05/05/20 00:35 05/03/20 04:45
[2020-05-11 17:40] LABS: C-Reactive Protein 0.3 mg/dL (0.00-1.30)
[2020-05-11] MEDS: ACETAMINOPHEN 325 MG TAB PO PRN (20:40)
--- NOTE | 2020-05-12 05:16 | Progress Note ---
Assessment and Plan (1) Pneumonia Current Visit: Yes Status: Acute Qualifiers: Pneumonia type: due to unspecified organism Laterality: bilateral Lung location: unspecified part of lung Qualified Code(s): J18.9 - Pneumonia, unspecified organism Plan to address problem: IV antibiotics discontinued (2) Respiratory failure Current Visit: Yes Status: Acute Qualifiers: Chronicity: acute Respiratory failure complication: hypoxia Qualified Code(s): J96.01 - Acute respiratory failure with hypoxia Plan to address problem: Patient is still becoming hypoxic to 88 on ambulation. O2 sats are normal with 2 L nasal cannula oxygen. Patient needs home oxygen. Patient is otherwise stable for discharge. (3) Suspected COVID-19 virus infection Current Visit: Yes Status: Acute Plan to address problem: Patient finished IDecadron course (4) DVT prophylaxis Current Visit: Yes Status: Acute Plan to address problem: Patient placed on subcutaneous Lovenox. (5) Full code status Current Visit: Yes Status: Acute 6)Discharge planning issues Patient on 2 L nasal cannula oxygen Patient is stable at 2 L nasal cannula oxygen Patient's O2 sats dropped to 88% on ambulation on room air Patient needs home oxygen at discharge Subjective Date of service: 05/11/20 Principal diagnosis: Ac. hypoxemic resp failure; COVID-19 infxn; Pneumonia; Morbid obesity Interval history: 84-year-old female with no significant past medical history presenting to the emergency room today complaining of shortness of breath. She also had associated chest discomfort. She was diagnosed with COVID-19 about a week ago but she started having difficulty breathing, having cough and fever today. He had some antibiotics, primary care physician-name unknown. He denies any nausea vomiting, no diarrhea, no abdominal pain, no hematuria or dysuria, no headache or dizziness. Denies any generalized body aches and pain. Patient was brought in by EMS and was found to be about 76% saturation on room air was subsequently placed on high flow oxygen. Chest x-ray reveals bilateral pneumonia. He has been placed on empiric IV antibiotics and IV steroid patient placed on isolation precautions for COVID-19. Patient doing well. Patient on 2 L nasal cannula oxygen. Patient is desaturating on ambulation without oxygen to 88%. No fever. Objective - Constitutional Vitals: Vital Signs - 12hr 05/11/20 05/11/20 22:00 22:11 Temperature 98.2 F Pulse Rate 65 Pulse Rate [ 65 From Monitor] Respiratory 18 18 Rate Blood Pressure 129/59 O2 Sat by Pulse 93 93 Oximetry General appearance: Present: no acute distress, well-nourished - EENT Eyes: PERRL, EOM intact ENT: hearing intact, clear oral mucosa Ears: bilateral: normal - Neck Neck: supple, normal ROM - Respiratory Respiratory effort: normal Respiratory: bilateral: CTA - Breasts Breasts: normal - Cardiovascular Heart rate: 78 Rhythm: regular Heart Sounds: Present: S1 & S2. Absent: gallop, rub Extremities: pulses intact, No edema, normal color, Full ROM - Gastrointestinal General gastrointestinal: Present: soft, non-tender, non-distended, normal bowel sounds - Genitourinary Female genitourinary: normal - Integumentary Integumentary: clear, warm, dry - Musculoskeletal Musculoskeletal: 1, strength equal bilaterally - Neurologic Neurologic: moves all extremities - Psychiatric Psychiatric: memory intact, appropriate mood/affect, intact judgment & insight - Labs CBC & Chem 7: 05/05/20 00:35 05/03/20 04:45 Labs: Abnormal lab results 05/11/20 05/11/20 Range/Units 15:44 15:44 D-Dimer 6099.77 H (0-234) ng/mlDDU Lactate Dehydrogenase 258 H (91-180) units/L HEART Score - HEART Score Troponin: Troponin T < 0.010 ng/mL (0.00-0.029) 05/01/20 22:50
[2020-05-12] MEDS: LEVOTHYROXINE 25 MCG TAB PO SCH (05:31)
[2020-05-12 07:43] LABS: Basophils % (Auto) 0.1 % (0.0-1.8); Eosinophils % (Auto) 0.4 % (0.0-4.3); Hematocrit 41.1 % (30.3-42.9); Hemoglobin 13.5 gm/dl (10.1-14.3); Lymphocytes # (Auto) 2.5 K/mm3 (1.2-5.4); Lymphocytes % (Auto) 19.2 % (13.4-35.0); Mean Corpuscular HGB Conc 33 % (30-34); Mean Corpuscular Volume 79 fl (79-97); Monocytes # (Auto) 1.1 K/mm3 (0.0-0.8); Monocytes % (Auto) 8.4 % (0.0-7.3); Platelet Count 182 K/mm3 (140-440); Red Blood Count 5.19 M/mm3 (3.65-5.03); Red Cell Distribution Width 14.4 % (13.2-15.2)
[2020-05-12 08:25] LABS: BUN/Creatinine Ratio 20; Blood Urea Nitrogen 14 mg/dL (7-17); Calcium 9.1 mg/dL (8.4-10.2); Hemolysis Index 7
[2020-05-12] MEDS: ENOXAPARIN 40 MG/0.4 ML INJ SUB-Q SCH (10:56)
--- NOTE | 2020-05-12 11:02 | Progress Note ---
Assessment and Plan Patient alert, awake. Patient is on 2 litre O2. O2 saturation running 94%. Patient says breathing better.Patient says walking in the room. Patient afebrile, No leukocytosis. Chest x-ray reveals bilateral pneumonia. He was placed on empiric IV antibiotics and IV steroid patient placed on isolation precautions for COVID-19. Patient was on ceftrioxone, Zithromax and dexamethasone and S/C Lovenox. Patient presently on Dexamethasone and S/C Lovenox. - Patient Problems (1) COVID-19 Status: Acute Plan to address problem: Patient is on dexamethasone and S/C Lovenox. Antibiotics as per infectious diseases. (2) Pneumonia Status: Acute Qualifiers: Pneumonia type: due to unspecified organism Laterality: bilateral Lung location: unspecified part of lung Qualified Code(s): J18.9 - Pneumonia, unspecified organism Plan to address problem: Patient was on ceftrioxone, Zithromax. Antibiotics stopped. Management as per infectious diseases. (3) Respiratory failure Status: Acute Qualifiers: Chronicity: acute Respiratory failure complication: hypoxia Qualified C ode(s): J96.01 - Acute respiratory failure with hypoxia Plan to address problem: Patient is on 2 litres O2. O2 saturation 94%. (4) Fever Status: Acute Qualifiers: Fever type: unspecified Qualified Code(s): R50.9 - Fever, unspecified Plan to address problem: Patient afebrile . Subjective Date of service: 05/12/20 Principal diagnosis: Ac. hypoxemic resp failure; COVID-19 infxn; Pneumonia; Morbid obesity Interval history: Patient alert, awake. Patient is on 2 litre O2. O2 saturation running 94%. Patient says breathing better.Patient says walking in the room. Patient afebrile, No leukocytosis. Chest x-ray reveals bilateral pneumonia. He was placed on empiric IV antibiotics and IV steroid patient placed on isolation precautions for COVID-19. Patient was on ceftrioxone, Zithromax and dexamethasone and S/C Lovenox. Patient presently on dexamethasone and S/C Lovenox. Objective Vital Signs - 12hr 05/12/20 05:43 Temperature 98.2 F Pulse Rate 69 Respiratory 18 Rate Blood Pressure 118/61 O2 Sat by Pulse 91 Oximetry Constitutional: no acute distress, alert, other (Morbidly Obese.) Eyes: non-icteric ENT: oropharynx moist Neck: supple, no JVD Effort: normal, mildly labored Ascultation: Bilateral: diminished breath sounds, rhonchi Cardiovascular: regular rate and rhythm, other (S1,S2) Gastrointestinal: normoactive bowel sounds, soft, non-tender Integumentary: normal Extremities: no cyanosis, no edema Neurologic: normal mental status, non-focal exam, pupils equal and round, CN II- XII normal, motor strength normal and Psychiatric: mood appropriate, affect normal CBC and BMP: 05/12/20 07:04 05/12/20 07:04 ABG, PT/INR, D-dimer: ABG ABG pH 7.420 pH Units (7.350-7.450) 05/03/20 16:35 ABG pCO2 37.9 mm Hg 05/03/20 16:35 ABG pO2 72.1 mm Hg (80.0-90.0) L 05/03/20 16:35 ABG O2 Saturation 95.0 % (95.0-99.0) 05/03/20 16:35 PT/INR, D-dimer PT 14.2 Sec. (12.2-14.9) 05/03/20 04:45 INR 1.08 (0.87-1.13) 05/03/20 04:45 D-Dimer 6099.77 ng/mlDDU (0-234) H 05/11/20 15:44 Abnormal lab findings: Abnormal Labs 05/01/20 05/01/20 05/01/20 22:50 22:50 22:50 WBC RBC 5.68 H Hgb 14.6 H Hct 45.6 H MCH 26 L Plt Count Lymph % (Auto) 10.6 L [place] % (Auto) 10.0 H Lymph # 0.9 L [place] # Seg Neutrophils % 79.1 H Seg Neutrophils # D-Dimer 835.72 H ABG pO2 Oxyhemoglobin Glucose 102 H POC Glucose Ferritin AST 54 H ALT 93 H Lactate Dehydrogenase C-Reactive Protein Total Protein 8.7 H Albumin 3.4 L Urine WBC (Auto) Coronavirus (PCR) 05/01/20 05/02/20 05/02/20 22:50 00:54 13:55 WBC RBC Hgb Hct MCH Plt Count Lymph % (Auto) [place] % (Auto) Lymph # [place] # Seg Neutrophils % Seg Neutrophils # D-Dimer ABG pO2 117.3 H Oxyhemoglobin Glucose 104 H POC Glucose Ferritin AST ALT Lactate Dehydrogenase 398 H C-Reactive Protein 6.70 H Total Protein Albumin Urine WBC (Auto) 8.0 H Coronavirus (PCR) 05/03/20 05/03/20 05/03/20 04:45 04:45 16:35 WBC 13.1 H RBC 5.32 H Hgb Hct MCH 26 L Plt Count Lymph % (Auto) 8.3 L [place] % (Auto) 8.1 H Lymph # 1.1 L [place] # 1.1 H Seg Neutrophils % 83.4 H Seg Neutrophils # 10.9 H D-Dimer ABG pO2 72.1 L Oxyhemoglobin 93.8 L Glucose 110 H POC Glucose Ferritin AST ALT Lactate Dehydrogenase C-Reactive Protein Total Protein Albumin Urine WBC (Auto) Coronavirus (PCR) 05/05/20 05/05/20 05/05/20 00:35 05:05 05:05 WBC RBC 5.47 H Hgb Hct 44.3 H MCH 26 L Plt Count 124 L Lymph % (Auto) 9.8 L [place] % (Auto) 7.7 H Lymph # 0.9 L [place] # Seg Neutrophils % 82.2 H Seg Neutrophils # 7.9 H D-Dimer > 70935 H ABG pO2 Oxyhemoglobin Glucose POC Glucose Ferritin AST ALT Lactate Dehydrogenase 377 H C-Reactive Protein 6.50 H Total Protein Albumin Urine WBC (Auto) Coronavirus (PCR) 05/05/20 05/06/20 05/07/20 Unknown 06:06 06:44 WBC RBC Hgb Hct MCH Plt Count Lymph % (Auto) [place] % (Auto) Lymph # [place] # Seg Neutrophils % Seg Neutrophils # D-Dimer > 37028 H ABG pO2 Oxyhemoglobin Glucose POC Glucose 265 H Ferritin AST ALT Lactate Dehydrogenase C-Reactive Protein Total Protein Albumin Urine WBC (Auto) Coronavirus (PCR) Positive A 05/07/20 05/11/20 05/11/20 06:44 15:44 15:44 WBC RBC Hgb Hct MCH Plt Count Lymph % (Auto) [place] % (Auto) Lymph # [place] # Seg Neutrophils % Seg Neutrophils # D-Dimer 6099.77 H ABG pO2 Oxyhemoglobin Glucose POC Glucose Ferritin 270.5 H AST ALT Lactate Dehydrogenase 280 H C-Reactive Protein Total Protein Albumin Urine WBC (Auto) Coronavirus (PCR) 05/11/20 05/12/20 15:44 07:04 WBC 13.1 H RBC 5.19 H Hgb Hct MCH 26 L Plt Count Lymph % (Auto) [place] % (Auto) 8.4 H Lymph # [place] # 1.1 H Seg Neutrophils % 71.9 H Seg Neutrophils # 9.4 H D-Dimer ABG pO2 Oxyhemoglobin Glucose POC Glucose Ferritin AST ALT Lactate Dehydrogenase 258 H C-Reactive Protein Total Protein Albumin Urine WBC (Auto) Coronavirus (PCR) Allied health notes reviewed: nursing
--- NOTE | 2020-05-12 13:18 | Discharge Summary ---
Providers - Providers Date of Admission: 05/02/20 00:02 Attending physician: LC RAO 05/01/20 23:54 Consult to Physician [CONS] Routine Comment: Consulting Provider: SALBADOR YANCEY Physician Instructions: Reason For Exam: POSS COVID 05/02/20 00:22 Consult to Dietitian/Nutrition [CONS] Routine Physician Instructions: Reason For Exam: Reason for Consult: Diet education Consult to Physician [CONS] Routine Comment: Consulting Provider: JAZMIN QUINTANILLA Physician Instructions: Reason For Exam: PNEUMONIA, R/O COVID., RESP. FAILURE Primary care physician: [employer] Hospitalization Condition: Critical Disposition: DC-30 STILL A PATIENT Exam - Constitutional Vitals: Temp Pulse Resp BP Pulse Ox 98.2 F 69 18 118/61 91 05/12/20 05:43 05/12/20 05:43 05/12/20 05:43 05/12/20 05:43 05/12/20 05:43 Plan Follow up with: PRIMARY MD MIRTHA [Primary Care Provider] - 3-5 Days
[2020-05-12 15:35] VITALS: BP 122/75
== END 2020-05-12 18:15 | disposition home or self-care (01) | DRG 177 ==
LOC: ED 22:02 → IMCU 05-02 00:02 → CC1 05-03 09:24 → IMCU 05-05 05:22 → 3A 05-05 19:21
PROVIDERS: ADMIT Internal Medicine Geriatric Medicine; ATTEND Internal Medicine
PROC: 4A033R1 Measurement of Arterial Saturation, Peripheral, Percutaneous Approach (ICD-10-PCS; principal; 2020-05-01)
DX: U07.1 COVID-19 (principal); J96.01 Acute respiratory failure with hypoxia; J12.89 Other viral pneumonia; Z68.43 Body mass index [BMI] 50.0-59.9, adult; E03.9 Hypothyroidism, unspecified; E66.01 Morbid (severe) obesity due to excess calories
CPT/HCPCS: 36415; 36600; 71045; 80048; 80053; 81001; 82140; 82550; 82553; 82728; 82803; 82947; 82962; 83615; 84145; 84484; 85025; 85379; 85610; 86140; 86850; 86900; 86901; 87040; 93005; 93970; 94760; G0378; J0456; J0696; J1100; J1650; J2270; J2405; J2930; J7030; J7050; J8540; U0003-CS